=== PATIENT | female | born 1975 | race Caucasian/White ===

== ENCOUNTER 2022-07-17 16:23 | Outpatient (CLI) | payer OTHER, SELFPAY ==
[2022-07-17 18:50] LABS: Basophils Absolute Auto 0.1 K/mm3 (0.0-0.1); Basophils Percent Auto 0.7 % (0.2-1.2); Eosinophils Absolute Auto 0.2 K/mm3 (0-0.3); Eosinophils Percent Auto 1.3 % (0-4.4); Hemoglobin 17.5 g/dL (12.0-15.0); Immature Granulocyte Absolute 0.05 K/mm3 (0.00-0.031); Immature Granulocyte Percent A 0.3 % (0-0.5); Lymphocytes Absolute Auto 3.74 K/mm3 (0.9-3.2); Lymphocytes Percent Auto 24.1 % (18.3-44.2); Mean Corpuscular Hemoglobin 30.2 pg (26-34); Mean Corpuscular Volume 91.4 fl (80-100); Mean Platelet Volume 9.8 fl (7.4-10.4); Monocytes Percent Auto 6.6 % (2.6-8.5); Neutrophils Absolute Auto 10.4 K/mm3 (1.3-6.7); Platelet Count Result 324 k/mm3 (150-375); Red Cell Distribution Width 12.9 % (11.5-14.5); White Blood Count 15.5 K/mm3 (4.5-10.0)
[2022-07-17 18:59] LABS: Alanine Aminotransferase 28 U/L (6-35); Albumin Level 4.7 g/dL (3.5-5.1); Alkaline Phosphatase 70 U/L (38-126); Anion Gap 8 mmol/L (8-16); Aspartate Amino Transferase 37 U/L (14-36); Bilirubin,Total 0.3 mg/dL (0.2-1.3); Blood Urea Nitrogen 10 mg/dL (7-17); Calcium 9.5 mg/dL (8.4-10.2); Carbon Dioxide 34 mmol/L (22-30); Chloride 96 mmol/L (98-107); Cholesterol 141 mg/dL (0-200); Creatine Kinase 36 U/L (30-135); Estimated Glomerular Filt Rate > 60; Glucose 156 mg/dL (65-110); HDL Direct 55 mg/dL; Potassium 4.4 mmol/L (3.4-5.0); Sodium 138 mmol/L (137-145); Triglycerides 215 mg/dL (<150)
[2022-07-17 19:04] LABS: LDL Cholesterol Direct 49 mg/dL
[2022-07-17 19:22] LABS: Hemoglobin A1C 6.8 % (<5.7)
[2022-07-17 19:25] LABS: Creatinine Urine 34.2 mg/dL; MALB Creatinine Ratio 216.4 mg/g (0-30)
== END 2022-07-17 16:24 | disposition home or self-care (01) ==
LOC: ANHGOSHLAB 16:24
PROVIDERS: PCP Internal Medicine; Visit Provider Internal Medicine
DX: M79.10 Myalgia, unspecified site (principal); E11.69 Type 2 diabetes mellitus with other specified complication; E66.9 Obesity, unspecified
CPT/HCPCS: 36415; 80053; 80061; 82043; 82550; 83036; 84443; 85025

== ENCOUNTER 2022-08-03 09:43 | Outpatient (CLI) | payer OTHER, SELFPAY ==
[2022-08-06 11:16] LABS: Erythropoietin (EPO) 4.9 mIU/mL (2.6-18.5)
[2022-08-08 14:36] LABS: CALR Exon 9 Mutation Not Detected (Not Detected); CSF3R Exon 14/17 Mutation Not Detected (Not Detected); Clinical Indication Not Provided; JAK2 Exon 12 Mutation Not Detected (Not Detected); JAK2 V617F Mutation Not Detected (Not Detected); MPL Exon 10 Mutation Not Detected (Not Detected); Specimen Source Blood
== END 2022-08-03 09:44 | disposition home or self-care (01) ==
LOC: ANHGOSHLAB 09:44
PROVIDERS: PCP Internal Medicine; Visit Provider Internal Medicine
DX: M79.10 Myalgia, unspecified site (principal); R20.2 Paresthesia of skin; D75.1 Secondary polycythemia
CPT/HCPCS: 36415; 81219; 81270; 81402; 81403; 81479; 82668; 82728

== ENCOUNTER → 2022-08-03 09:56 | Outpatient (CLI) | payer OTHER, SELFPAY ==
--- NOTE | ~2022-08-03 | XR_ITS ---
EXAMINATION: XR chest 2V DATE: 08/03/2022 10:31 INDICATION: Other specified symptoms and signs. TECHNIQUE: Frontal and lateral views of the chest were obtained on 3 radiographs. COMPARISON: CT abdomen and pelvis 03/21/2016, chest 2 views 07/09/2015 FINDINGS: There is no pneumonia, pleural effusion, or pneumothorax. The heart size is normal. There a re changes of anterior fusion procedure in cervical spine. IMPRESSION: 1. No acute cardiopulmonary disease. Reviewed, dictated and finalized at location A.
== END ==
PROVIDERS: PCP Internal Medicine; Visit Provider Internal Medicine
DX: R06.00 Dyspnea, unspecified (principal); R09.89 Other specified symptoms and signs involving the circulatory and respiratory systems
CPT/HCPCS: 71046

== ENCOUNTER 2022-08-24 08:08 | Outpatient (CLI) | payer OTHER, SELFPAY ==
--- NOTE | 2022-08-24 15:09 | WPDPFTINT ---
PFT Procedure Performed PFT Procedure Performed Plethysmography (Lung Vol) Diffusing Cap (DLCO) Flow Vol Loop Spirometry w/o Bronchodil PFT Interpretation This is a pulmonary function test with spirometry, plethysmography and diffusing capacity. The test was performed and results interpreted in accordance with the 2019 and 2005 ATS/ERS Task Force guidelines respectively using the Global Lung Function Initiative-2012 reference equations. Patient demonstrated good effort and cooperation. Reproducibility criteria were met. The quality of the spirometry maneuver was Grade A. Findings: Spirometry: There is decreased maximal expiratory airflow at all lung volumes with a concave expiratory flow tracing. The contour the inspiratory flow tracing is normal. The FVC is 2.41 L, 62% predicted. The FEV1 is 1.46 L, 46% predicted. The FEV1: FVC ratio 61%. Plethysmography: The total lung capacity is 5.28 L, 96% predicted. The functional residual capacity is 3.51 L, 114% predicted. The residual volume is 2.86 L, 153% predicted. Diffusion capacity: The diffusing capacity unadjusted for hemoglobin and carboxyhemoglobin is 18.8, 78% predicted. The diffusing capacity adjusted for alveolar volume is 5.36, 119% predicted. Impression: There is a severe obstructive abnormality. The increase in residual volume is consistent with air trapping from an obstructive abnormality. The diffusing capacity is normal. There are no prior studies for comparison
== END 2022-08-24 08:09 | disposition home or self-care (01) ==
LOC: ANHPFT 08:10
PROVIDERS: PCP Internal Medicine; Visit Provider Internal Medicine
DX: R09.89 Other specified symptoms and signs involving the circulatory and respiratory systems (principal); R06.00 Dyspnea, unspecified; R94.2 Abnormal results of pulmonary function studies
CPT/HCPCS: 94375; 94726; 94729

== ENCOUNTER 2022-10-03 08:45 | Outpatient (CLI) | payer OTHER, SELFPAY ==
--- NOTE | ~2022-10-03 | US_ITS ---
EXAMINATION: US arterial ankle brachial ind DATE: 10/03/2022 10:09 INDICATION: Bilateral lower limb pain and paresthesias, left greater than right. TECHNIQUE: Segmental pressures and plethysmographic and Doppler waveforms of the brachial and lower e xtremity arteries were obtained. COMPARISON: None. FINDINGS: Right and left brachial artery pressures of 151 mm Hg and 158 mm Hg, respectively, are concordant (no rmal difference <= 30 mmHg). The right ankle-brachial index (SOLOMON) is 1.08 (normal >= 0.9-1.0). The right great toe-brachial index (TBI) is 1.01 (normal >= 0.65). Arterial Doppler waveforms biphasic with brisk systolic upstrokes at both right posterior tibial and dorsalis pedis arteries. The left SOLOMON is 1.09. The left TBI is 0.96. Arterial Doppler waveforms are biphasic with brisk systol ic upstrokes at both left posterior tibial and dorsalis pedis arteries. IMPRESSION: 1. No significant arterial occlusive disease with normal bilateral ABIs and TBIs. Reviewed, dictated and finalized at location A. [employer] SERVICES MANAGER IMPRESSION: 1. No significant arterial occlusive disease with normal bilateral ABIs and TBI s.
--- NOTE | 2022-10-03 11:00 | NEURO_ITS ---
Impression: # History of lower extremity pain. # Normal nerve conduction study. # Normal needle/EMG exam. # Clinical correlation recommended. Motor Nerve Conduction Lower Extremities Peroneal Nerve Conduction Velocity (m/sec) Terminal Latency (msec) Response Voltage(mV) Popliteal space-Ankle Ankle Extensor Dig Brevis Popliteal space Ankle Right 45-42 3.9 3-2 3 Left 42-44 4.2 2-2 3 Tibial Nerve Conduction Velocity (m/sec) Terminal Latency (msec) Response Voltage(mV) Popliteal space-Ankle Ankle-Extensor Dig Brevis Popliteal space Ankle Right 43 4.0 6 8 Left 40 4.1 6 7 F-waves Peroneal Nerve (ms) Tibial Nerve (ms) Right 48.7 49.2 Left 49.3 48.7 Sensory Nerve Conduction Lower Extremities Sural Nerve Stimulation Terminal Latency (msec) Ankle Response Voltage (uV) Ankle Response Velocity (m/sec) Right 3.9 20 41 Left 3.9 28 41 Superficial Peroneal Nerve Stimulation Terminal Latency (msec) Ankle Response Voltage (uV) Ankle Response Velocity (m/sec) Right 3.9 7 41 Left 3.7 5 43 Left Right Muscles Examined Fibrillation Fasciculation Scarcity Voltage Duration Left Right Left Right Left Right Left Right Left Right X X Ant Tibialis X X Gastroc X X Fibularis Long X X Flex Dig Long X X Ext Dig Brev Abd Hallucis Quadriceps Paraspinals MTDD
== END 2022-10-03 08:46 | disposition home or self-care (01) ==
PROVIDERS: PCP Internal Medicine; Visit Provider Internal Medicine
DX: R20.2 Paresthesia of skin (principal); M79.10 Myalgia, unspecified site; E11.69 Type 2 diabetes mellitus with other specified complication; E66.9 Obesity, unspecified
CPT/HCPCS: 93922; 95886; 95910

== ENCOUNTER 2022-10-10 17:02 | Emergency (ER) | payer OTHER, SELFPAY ==
[2022-10-10 17:30] VITALS: BP 149/82; PULSE 97; RESP 16; TEMP 36.3; O2SAT 93
--- NOTE | 2022-10-10 18:15 | PC.NURSE ---
pt previously informed staff she could not wait to be seen tonnano. aware there are 5 people
--- NOTE | 2022-10-10 18:24 | PC.NURSE ---
Pt previously informed staff she did not want to wait to be seen, aware there were 5 patients to be seen in front of her. nurse observed walking in [place] in no apparent distress.
== END 2022-10-10 17:35 | disposition left against medical advice (07) ==
PROVIDERS: Emergency Provider Registered Nurse; PCP Internal Medicine
DX: Z53.21 Procedure and treatment not carried out due to patient leaving prior to being seen by health care provider (principal)
CPT/HCPCS: 99199

== ENCOUNTER 2022-10-11 16:11 | Emergency (ER) | payer OTHER, SELFPAY ==
[2022-10-11 16:32] VITALS: BP 136/79; PULSE 91; RESP 16; TEMP 36.3; O2SAT 92
--- NOTE | 2022-10-11 16:44 | ED.URI ---
HPI - URI/Sore Throat General Chief Complaint: Upper Respiratory Infection Stated Complaint: runny nose chest congestion throat Time Seen by Provider: 10/11/22 16:44 Source: patient Mode of arrival: ambulatory Limitations: no limitations History of Present Illness HPI Narrative: 47-year-old female presenting for complaint of cough, upper chest discomfort and Shortness of breath. Onset one week. Coughing green sputum. States she thinks she has bronchitis. Reports new pcp is testing her for lung conditions and she has had CXR and CT recently. hx DM, asthma. Using inhalers as directed. Used neb yesterday with temporary relief. Current smoker 1/2 PPD. Related Data Home Medications Medication Instructions Recorded Confirmed cholecalciferol (vitamin D3) 125 5,000 unit PO DAILY 07/17/22 10/11/22 mcg (5,000 unit) capsule multivitamin (Daily Multi-Vitamin 1 tablet PO DAILY 07/17/22 10/11/22 tablet) Allergies Allergy/AdvReac Type Severity Reaction Status Date / Time sulfamethoxazole Allergy Intermediate Hives Verified 10/11/22 16:44 [From ] trimethoprim [From ] Allergy Intermediate Hives Verified 10/11/22 16:44 codeine Allergy Unknown Unknown Verified 10/11/22 16:44 Review of Systems Review of Systems: CONSTITUTIONAL: Denies body aches, fever, chills, or sweats. EYES: Denies visual changes, redness, or discharge. ENT: Denies rhinorrhea, congestion, sore throat, or otalgia. CARDIOVASCULAR: Denies chest pain, palpitations, or edema. RESPIRATORY: Reports cough, sob, wheezing. GASTROINTESTINAL: Denies abdominal pain, nausea, vomiting, or diarrhea. MUSCULOSKELETAL: Denies back pain, joint pain, or myalgia. NEUROLOGIC: Denies headache, numbness, tingling, or weakness. All systems reviewed & are unremarkable except as noted in HPI and below PMFSH Past Medical History Medical History Anxiety Asthma Chronic neck pain Diabetes mellitus type 2 in obese Hyperlipemia Hypertension Family History Family History Mother Alcoholism Diabetes mellitus Depression Anxiety Father Asthma Daughter Asthma Anxiety Depression Grandparent Cancer Son Anxiety Depression Sibling Anxiety Depression Other Family history of alcoholism Hypertension Social History Social History Smoking status: Current every day smoker Tobacco type: cigarettes Additional smoking assessment comments: 1-2 packs a day Alcohol intake: current Alcohol use details: few times a month. beer mostly but occasionally a mixed drink Substance use type: unknown Gender identity (if verbalized by the patient): Male Agree to blood products: Yes Comments At time of signature, I have reviewed and agree with nursing past medical, surgical, social and family history unless otherwise noted. Please see nursing chart for further information. There is no relevant family history pertinent to the presenting complaint Exam Narrative: GENERAL: Well-appearing, in no acute distress. EYES: EOMI. No redness or drainage. Conjunctivae normal. ENT: Mucous membranes pink and moist. No rhinorrhea. TMs normal bilaterally. Throat normal. Uvula midline. NECK: Normal AROM. Supple. CHEST: No respiratory distress. Unlabored. Diminished and Wheezing to all wong. HEART: Regular rate and rhythm. No murmur appreciated. SKIN: Warm, dry, no rash. Capillary refill normal. Normal skin turgor. NEURO: Alert and oriented x3. PSYCH: Normal affect. Course Course Emergency Course: Patient is aware of diagnosis, understands and agrees to treatment plan. Anticipatory guidance given. Patient agrees to follow-up as directed and is aware of reasons to seek care at the emergency department. Portions of this record may have been created with voice recognition s
[2022-10-11] MEDS: IPRATROPIUM BR 0.02% INH SOLN 0.5 MG/2.5 ML VIAL INHALATION (16:58)
[2022-10-11] MEDS: ALBUTEROL SULFATE NEB 2.5 MG/3 ML INH INHALATION (16:59)
[2022-10-11 17:10] VITALS: O2SAT 96
== END 2022-10-11 17:55 | disposition home or self-care (01) ==
PROVIDERS: Emergency Provider Nurse Practitioner Family; PCP Internal Medicine
DX: J40 Bronchitis, not specified as acute or chronic (principal); E11.9 Type 2 diabetes mellitus without complications; E78.5 Hyperlipidemia, unspecified; I10 Essential (primary) hypertension; F17.210 Nicotine dependence, cigarettes, uncomplicated; J45.909 Unspecified asthma, uncomplicated
CPT/HCPCS: 94640; 99213; G0463

== ENCOUNTER 2023-02-22 11:21 | Outpatient (CLI) | payer OTHER, SELFPAY ==
[2023-02-22 18:39] LABS: Appearance Urine Clear (Clear); Bilirubin Urine Negative (Negative); Blood Urine Negative (Negative); Color Urine Yellow (Yellow); Glucose Urine UA 2+ mg/dL (Negative); Ketones Urine Negative (Negative); Leukocyte Esterase Ur Negative LEU/UL (NEGATIVE); Nitrate Urine Negative (Negative); Protein Urine 2+ mg/dL (Negative); Specific Grav Ur 1.015 (1.001-1.035); Urobilinogen Urine 0.2 mg/dL (<2.0)
[2023-02-22 18:42] LABS: Basophils Absolute Auto 0.1 K/mm3 (0.0-0.1); Basophils Percent Auto 0.8 % (0.2-1.2); Eosinophils Absolute Auto 0.2 K/mm3 (0-0.3); Eosinophils Percent Auto 1.2 % (0-4.4); Hemoglobin 16.7 g/dL (12.0-15.0); Immature Granulocyte Absolute 0.04 K/mm3 (0.00-0.031); Immature Granulocyte Percent A 0.3 % (0-0.5); Lymphocytes Absolute Auto 3.18 K/mm3 (0.9-3.2); Lymphocytes Percent Auto 20.6 % (18.3-44.2); Mean Corpuscular HGB Conc 32.7 g/dl (32-36); Mean Corpuscular Volume 91.6 fl (80-100); Mean Platelet Volume 9.7 fl (7.4-10.4); Monocytes Absolute Auto 1.4 K/mm3 (0.1-0.6); Monocytes Percent Auto 8.8 % (2.6-8.5); Neutrophils Absolute Auto 10.5 K/mm3 (1.3-6.7); Neutrophils Percent Auto 68.3 % (45.5-73.1); Platelet Count Result 306 k/mm3 (150-375); Red Blood Count 5.57 M/mm3 (4.2-5.4); Red Cell Distribution Width 12.8 % (11.5-14.5); White Blood Count 15.4 K/mm3 (4.5-10.0)
[2023-02-22 18:53] LABS: Add Urine Microscopic? YES; RBC Urine 0-2 /hpf (0-2); WBC Urine 0-5 /hpf (0-3)
[2023-02-22 18:54] LABS: Bacteria Urine None seen /hpf; Squamous Epithelial Cell Urine None seen /hpf (Few)
[2023-02-22 18:55] LABS: Non Pathogenic Casts 0-2
[2023-02-22 18:57] LABS: Alanine Aminotransferase 23 U/L (6-35); Albumin Level 4.6 g/dL (3.5-5.1); Alkaline Phosphatase 62 U/L (38-126); Anion Gap 13 mmol/L (8-16); Aspartate Amino Transferase 19 U/L (14-36); Bilirubin,Total 0.4 mg/dL (0.2-1.3); Blood Urea Nitrogen 9 mg/dL (7-17); Calcium 9.1 mg/dL (8.4-10.2); Carbon Dioxide 23 mmol/L (22-30); Chloride 96 mmol/L (98-107); Estimated Glomerular Filt Rate > 60; Glucose 138 mg/dL (65-110); Potassium 3.7 mmol/L (3.4-5.0); Sodium 132 mmol/L (137-145)
[2023-02-22 20:07] LABS: Hemoglobin A1C 7.1 % (<5.7)
== END 2023-02-22 11:22 | disposition home or self-care (01) ==
LOC: ANHGOSHLAB 11:23
PROVIDERS: PCP Internal Medicine; Visit Provider Nurse Practitioner
DX: E11.69 Type 2 diabetes mellitus with other specified complication (principal); E66.9 Obesity, unspecified; N39.0 Urinary tract infection, site not specified; R30.0 Dysuria
CPT/HCPCS: 36415; 80053; 81001; 83036; 85025; 87086

== ENCOUNTER 2023-08-19 09:55 | Outpatient (CLI) | payer OTHER, SELFPAY ==
[2023-08-19 18:37] LABS: Alanine Aminotransferase 26 U/L (6-35); Albumin Level 4.5 g/dL (3.5-5.1); Alkaline Phosphatase 54 U/L (38-126); Anion Gap 4 mmol/L (8-16); Aspartate Amino Transferase 26 U/L (14-36); Bilirubin,Total 0.4 mg/dL (0.2-1.3); Blood Urea Nitrogen 9 mg/dL (7-17); CRP < 0.5 mg/dL (<1.0); Calcium 9.1 mg/dL (8.4-10.2); Carbon Dioxide 31 mmol/L (22-30); Chloride 99 mmol/L (98-107); Cholesterol 136 mg/dL (0-200); Estimated Glomerular Filt Rate > 60; Glucose 157 mg/dL (65-110); HDL Direct 48 mg/dL; Potassium 4.3 mmol/L (3.4-5.0); Sodium 134 mmol/L (137-145); Triglycerides 265 mg/dL (<150)
[2023-08-19 18:47] LABS: LDL Cholesterol Direct 65 mg/dL
[2023-08-19 19:42] LABS: Basophils Absolute Auto 0.1 K/mm3 (0.0-0.1); Basophils Percent Auto 0.7 % (0.2-1.2); Eosinophils Absolute Auto 0.1 K/mm3 (0-0.3); Eosinophils Percent Auto 0.7 % (0-4.4); Hematocrit 51.6 % (37.0-47.0); Hemoglobin 16.9 g/dL (12.0-15.0); Hemoglobin A1C 7.1 % (<5.7); Immature Granulocyte Absolute 0.03 K/mm3 (0.00-0.031); Immature Granulocyte Percent A 0.2 % (0-0.5); Lymphocytes Absolute Auto 2.48 K/mm3 (0.9-3.2); Lymphocytes Percent Auto 20.3 % (18.3-44.2); Mean Corpuscular HGB Conc 32.8 g/dl (32-36); Mean Corpuscular Hemoglobin 30.6 pg (26-34); Mean Corpuscular Volume 93.3 fl (80-100); Mean Platelet Volume 10.1 fl (7.4-10.4); Monocytes Absolute Auto 0.8 K/mm3 (0.1-0.6); Monocytes Percent Auto 6.5 % (2.6-8.5); Neutrophils Absolute Auto 8.8 K/mm3 (1.3-6.7); Neutrophils Percent Auto 71.6 % (45.5-73.1); Platelet Count Result 359 k/mm3 (150-375); Red Blood Count 5.53 M/mm3 (4.2-5.4); Red Cell Distribution Width 12.6 % (11.5-14.5); White Blood Count 12.2 K/mm3 (4.5-10.0)
[2023-08-19 20:08] LABS: Erythrocyte Sedimentation Rate 4 mm/hr (0-20)
== END 2023-08-19 09:56 | disposition home or self-care (01) ==
LOC: ANHGOSHLAB 09:57
PROVIDERS: PCP Internal Medicine; Visit Provider Internal Medicine
DX: E11.69 Type 2 diabetes mellitus with other specified complication (principal); E66.9 Obesity, unspecified; D75.1 Secondary polycythemia; M79.10 Myalgia, unspecified site
CPT/HCPCS: 36415; 80053; 80061; 83036; 85025; 85652; 86140

== ENCOUNTER 2024-04-10 11:13 | Outpatient (CLI) | payer OTHER, SELFPAY ==
[2024-04-10 18:50] LABS: Basophils Absolute Auto 0.2 K/mm3 (0.0-0.1); Basophils Percent Auto 1.1 % (0.2-1.2); Eosinophils Absolute Auto 0.8 K/mm3 (0-0.3); Hematocrit 49.3 % (37.0-47.0); Hemoglobin 16.3 g/dL (12.0-15.0); Immature Granulocyte Absolute 0.07 K/mm3 (0.00-0.031); Immature Granulocyte Percent A 0.4 % (0-0.5); Lymphocytes Absolute Auto 3.41 K/mm3 (0.9-3.2); Lymphocytes Percent Auto 20.6 % (18.3-44.2); Mean Corpuscular HGB Conc 33.1 g/dl (32-36); Mean Corpuscular Hemoglobin 29.8 pg (26-34); Mean Corpuscular Volume 90.1 fl (80-100); Mean Platelet Volume 9.9 fl (7.4-10.4); Monocytes Absolute Auto 1.2 K/mm3 (0.1-0.6); Neutrophils Absolute Auto 10.9 K/mm3 (1.3-6.7); Neutrophils Percent Auto 65.9 % (45.5-73.1); Platelet Count Result 294 k/mm3 (150-375); Red Blood Count 5.47 M/mm3 (4.2-5.4); Red Cell Distribution Width 13.1 % (11.5-14.5); White Blood Count 16.6 K/mm3 (4.5-10.0)
[2024-04-10 19:22] LABS: Alanine Aminotransferase 22 U/L (6-35); Albumin Level 4.4 g/dL (3.5-5.1); Alkaline Phosphatase 63 U/L (38-126); Anion Gap 6 mmol/L (4-12); Aspartate Amino Transferase 44 U/L (14-36); Bilirubin,Total 0.5 mg/dL (0.2-1.3); Blood Urea Nitrogen 10 mg/dL (7-17); Calcium 9.3 mg/dL (8.4-10.2); Carbon Dioxide 31 mmol/L (22-30); Chloride 99 mmol/L (98-107); Creatine Kinase 39 U/L (30-135); Estimated Glomerular Filt Rate > 60; Glucose 98 mg/dL (65-110); Magnesium 1.8 mg/dL (1.6-2.3); Potassium 4.4 mmol/L (3.4-5.0); Sodium 136 mmol/L (137-145)
[2024-04-10 19:59] LABS: Hemoglobin A1C 6.9 % (<5.7)
== END 2024-04-10 11:14 | disposition home or self-care (01) ==
LOC: ANHGOSHLAB 11:16
PROVIDERS: PCP Internal Medicine; Visit Provider Internal Medicine
DX: E87.1 Hypo-osmolality and hyponatremia (principal); M79.10 Myalgia, unspecified site; D75.1 Secondary polycythemia; E11.69 Type 2 diabetes mellitus with other specified complication; E66.9 Obesity, unspecified
CPT/HCPCS: 36415; 80053; 82550; 82728; 83036; 83735; 85025

== ENCOUNTER 2024-05-01 11:15 | Outpatient (CLI) | payer OTHER, SELFPAY ==
[2024-05-01 11:35] LABS: Basophils Absolute Auto 0.1 K/mm3 (0.0-0.1); Basophils Percent Auto 0.7 % (0.2-1.2); Eosinophils Absolute Auto 0.1 K/mm3 (0-0.3); Eosinophils Percent Auto 1.2 % (0-4.4); Hemoglobin 15.7 g/dL (12.0-15.0); Immature Granulocyte Absolute 0.03 K/mm3 (0.00-0.031); Immature Granulocyte Percent A 0.3 % (0-0.5); Lymphocytes Absolute Auto 2.55 K/mm3 (0.9-3.2); Lymphocytes Percent Auto 23.7 % (18.3-44.2); Mean Corpuscular HGB Conc 33.4 g/dl (32-36); Mean Corpuscular Hemoglobin 30.3 pg (26-34); Mean Corpuscular Volume 90.6 fl (80-100); Mean Platelet Volume 9.3 fl (7.4-10.4); Monocytes Absolute Auto 0.9 K/mm3 (0.1-0.6); Monocytes Percent Auto 8.1 % (2.6-8.5); Neutrophils Absolute Auto 7.1 K/mm3 (1.3-6.7); Platelet Count Result 297 k/mm3 (150-375); Red Blood Count 5.19 M/mm3 (4.2-5.4); Red Cell Distribution Width 13.1 % (11.5-14.5); White Blood Count 10.8 K/mm3 (4.5-10.0)
[2024-05-01 12:38] LABS: Iron 69 ug/dL (37-170)
[2024-05-01 12:40] LABS: Appearance Urine Clear (Clear); Bacteria Urine None Seen /hpf; Bilirubin Urine Negative (Negative); Blood Urine Negative (Negative); Color Urine Yellow (Yellow); Glucose Urine UA Negative (Negative); Ketones Urine Negative (Negative); Leukocyte Esterase Ur Trace LEU/UL (Negative); Nitrate Urine Negative (Negative); Non Pathogenic Casts 0-2; Protein Urine Negative (Negative); RBC Urine 0-2 /hpf (0-2); Specific Grav Ur 1.008 (1.001-1.035); Squamous Epithelial Cell Urine None Seen /hpf (Few); Urobilinogen Urine 0.2 mg/dL (<2.0); WBC Urine 0-5 /hpf (0-3); pH Urine 6.5 (5.0-9.0)
[2024-05-01 12:43] LABS: Alanine Aminotransferase 26 U/L (6-35); Albumin Level 4.4 g/dL (3.5-5.1); Alkaline Phosphatase 56 U/L (38-126); Anion Gap 5 mmol/L (4-12); Aspartate Amino Transferase 21 U/L (14-36); Bilirubin,Total 0.4 mg/dL (0.2-1.3); Blood Urea Nitrogen 12 mg/dL (7-17); CRP < 0.5 mg/dL (<1.0); Calcium 9.2 mg/dL (8.4-10.2); Carbon Dioxide 31 mmol/L (22-30); Chloride 100 mmol/L (98-107); Estimated Glomerular Filt Rate > 60; Glucose 180 mg/dL (65-110); Potassium 4.3 mmol/L (3.4-5.0); Sodium 136 mmol/L (137-145)
[2024-05-01 12:47] LABS: Percent Iron Saturation 19 % (20-50)
[2024-05-01 12:58] LABS: Erythrocyte Sedimentation Rate 1 mm/hr (0-20)
[2024-05-01 13:02] LABS: Add Urine Microscopic? YES
== END 2024-05-01 11:16 | disposition home or self-care (01) ==
LOC: ANHLAB 11:17
PROVIDERS: Nurse Practitioner Family; PCP Internal Medicine; Visit Provider Internal Medicine Hematology & Oncology
DX: D72.829 Elevated white blood cell count, unspecified (principal); D75.1 Secondary polycythemia; D64.9 Anemia, unspecified
CPT/HCPCS: 36415; 80053; 81001; 82668; 83540; 83550; 85025; 85652; 86140; 87086; 87088

== ENCOUNTER 2024-05-22 08:21 | Outpatient (CLI) | payer OTHER, SELFPAY ==
[2024-06-08 11:09] VITALS: BMI 29.0
--- NOTE | 2024-06-08 11:09 | WPDHOMESLEEP ---
Sleep Study - Home Unattended Date of Study: 05/22/24 Ordering Provider: Konstantin Hoover DO Interpreting Provider: Dunia Sosa DO Home Sleep Study Type: Watch PAT Height: 1.7 m Weight: 83.915 kg Body Mass Index: 29.0 Neck Circumference (inches): 16 [place]: 2 Reason for Sleep Study Snoring Sleep History The patient is a 49 year old female with anxiety, asthma, hypertension, hyperlipidemia, Type 2 diabetes and chronic neck pain that had a sleep study ordered by her primary care physician for evaluation of sleep apnea. The sleep questionnaire was unavailable. [facility] Past Medical History Medical History Anxiety Asthma Chronic neck pain Diabetes mellitus type 2 in obese Hyperlipemia Hypertension Family History Family History Mother Alcoholism Diabetes mellitus Depression Anxiety Father Asthma Daughter Asthma Anxiety Depression Grandparent Cancer Son Anxiety Depression Sibling Anxiety Depression Other Family history of alcoholism Hypertension Social History Social History Smoking status: Current every day smoker Tobacco type: cigarettes Additional smoking assessment comments: 1-2 packs a day Alcohol intake: current Alcohol use details: few times a month. beer mostly but occasionally a mixed drink Substance use type: unknown Do You Feel Safe in your Home?: Yes Lack of Transportation: No Lack of Food: Never True Current Housing: I Have Housing Concerned About Future Housing: No Difficulty Paying Gas/Electric Bills: No Difficulty Paying for Meds: No Currently Unemployed: No Education: High School Diploma/GED Difficulty w/ Childcare or Family Care: No Living arrangements: with family Gender identity (if verbalized by the patient): Male Agree to blood products: Yes Medications Home Medications Medication Instructions Recorded Confirmed Type cholecalciferol (vitamin D3) 125 5,000 unit PO DAILY 07/17/22 04/14/24 History mcg (5,000 unit) capsule multivitamin (Daily Multi-Vitamin 1 tablet PO DAILY 07/17/22 04/14/24 History tablet) metformin 500 mg tablet,extended 1,500 mg PO DAILY #360 tabs 08/19/23 04/14/24 Rx release 24 hr albuterol sulfate 90 mcg/actuation 2 puff inhalation Q4H PRN 01/01/24 04/14/24 Rx aerosol inhaler shortness of breath or wheezing #8.5 grams budesonide 160 mcg-glycopyr 9 2 inh inhalation BID #10.7 grams 04/14/24 04/14/24 Rx mcg-formot 4.8 mcg/actuation HFA inhaler (Breztri Aerosphere) pregabalin 75 mg capsule (Lyrica) 75 mg PO BID #60 caps 04/14/24 04/14/24 Rx citalopram 40 mg tablet 40 mg PO DAILY #90 tabs 05/05/24 Rx hydrocodone 10 mg-acetaminophen 1 tablet PO Q12H PRN pain #60 tabs 05/06/24 Rx 325 mg tablet lisinopril 20 mg tablet 20 mg PO DAILY #90 tabs 06/02/24 Rx rosuvastatin 5 mg tablet 5 mg PO DAILY #90 tabs 06/02/24 Rx dulaglutide 1.5 mg/0.5 mL See Rx Instructions .Route 06/08/24 Rx subcutaneous pen injector .COMPLEX #2 mL (Trulicity) Sleep Procedure The sleep study was completed using VidaveeT a technically adequate device with seven channels: peripheral arterial tone, actigraphy, body position, snore, respiratory movement, pulse oximetry, sleep staging, and heart rate. Prior to using the device, the patient received verbal and written instructions for its application and was provided with the help desk phone number for additional telephonic instruction with 24-hour availability of qualified personnel to answer questions. The study was scored using CMS guidelines. Sleep Architecture The total recording time is 6 hrs, 13 min. The total sleep time is 5 hrs, 44 min. Sleep latency is 22 minutes. REM latency is 94 minutes. The patient had 2 episodes of waking. Sleep architecture shows 30.2% deep sl
== END 2024-05-25 08:46 | disposition home or self-care (01) ==
LOC: ANHCSM 08:21
PROVIDERS: PCP Internal Medicine; Visit Provider Internal Medicine
DX: G47.33 Obstructive sleep apnea (adult) (pediatric) (principal); G47.34 Idiopathic sleep related nonobstructive alveolar hypoventilation; D75.1 Secondary polycythemia; G47.19 Other hypersomnia
CPT/HCPCS: 95800

== ENCOUNTER 2024-05-25 09:49 | Emergency (ER) | payer OTHER, SELFPAY ==
[2024-05-25] VITALS (15 sets, daily range): BP systolic 132–158; BP diastolic 70–92; PULSE 80–98; RESP 12–24; TEMP 36.5–36.6; O2SAT 90–94
[2024-05-25 11:02] LABS: Basophils Absolute Auto 0.1 K/mm3 (0.0-0.1); Basophils Percent Auto 0.6 % (0.2-1.2); Eosinophils Absolute Auto 0.2 K/mm3 (0-0.3); Eosinophils Percent Auto 1.4 % (0-4.4); Hematocrit 45.8 % (37.0-47.0); Hemoglobin 15.5 g/dL (12.0-15.0); Immature Granulocyte Absolute 0.05 K/mm3 (0.00-0.031); Immature Granulocyte Percent A 0.4 % (0-0.5); Lymphocytes Absolute Auto 2.27 K/mm3 (0.9-3.2); Lymphocytes Percent Auto 17.9 % (18.3-44.2); Mean Corpuscular HGB Conc 33.8 g/dl (32-36); Mean Corpuscular Volume 91.6 fl (80-100); Mean Platelet Volume 9.6 fl (7.4-10.4); Monocytes Absolute Auto 0.6 K/mm3 (0.1-0.6); Monocytes Percent Auto 4.5 % (2.6-8.5); Neutrophils Absolute Auto 9.5 K/mm3 (1.3-6.7); Neutrophils Percent Auto 75.2 % (45.5-73.1); Platelet Count Result 241 k/mm3 (150-375); Red Cell Distribution Width 13.3 % (11.5-14.5); White Blood Count 12.7 K/mm3 (4.5-10.0)
[2024-05-25 11:06] LABS: Appearance Urine Clear (Clear); Bacteria Urine None Seen /hpf; Bilirubin Urine Negative (Negative); Blood Urine 2+ (Negative); Color Urine Yellow (Yellow); Glucose Urine UA Negative (Negative); Ketones Urine Negative (Negative); Leukocyte Esterase Ur Negative LEU/UL (Negative); Nitrate Urine Negative (Negative); Non Pathogenic Casts 0-2; Protein Urine Negative (Negative); RBC Urine 21-50 /hpf (0-2); Specific Grav Ur 1.007 (1.001-1.035); Squamous Epithelial Cell Urine None Seen /hpf (Few); Urobilinogen Urine 0.2 mg/dL (<2.0); WBC Urine 0-5 /hpf (0-3); pH Urine 5.5 (5.0-9.0)
[2024-05-25 11:08] LABS: Add Urine Microscopic? YES
--- NOTE | 2024-05-25 11:12 | PC.NURSE ---
assumed care of pt from moises rankin. informed pt we are waiting on blood work to result. pt has no concerns at this time
[2024-05-25 11:19] LABS: Alanine Aminotransferase 18 U/L (6-35); Albumin Level 4.3 g/dL (3.5-5.1); Alkaline Phosphatase 50 U/L (38-126); Anion Gap 11 mmol/L (4-12); Aspartate Amino Transferase 24 U/L (14-36); Bilirubin,Total 0.4 mg/dL (0.2-1.3); Blood Urea Nitrogen 10 mg/dL (7-17); Calcium 9.4 mg/dL (8.4-10.2); Carbon Dioxide 24 mmol/L (22-30); Chloride 102 mmol/L (98-107); Estimated CRCL calculation 127 ml/min; Estimated Glomerular Filt Rate > 60; Glucose 176 mg/dL (65-110); Potassium 4.2 mmol/L (3.4-5.0); Sodium 137 mmol/L (137-145)
--- NOTE | 2024-05-25 12:14 | ED.FEMALEGU ---
HPI - Female Genitourinary General Chief complaint: Vaginal Bleeding Stated complaint: vaginal bleeding Time Seen by Provider: 05/25/24 10:39 Source: patient Mode of arrival: ambulatory Limitations: no limitations History of Present Illness HPI Narrative: Patient is a 49-year-old female who presents the ED with report of abnormal vaginal bleeding. Patient reports she is premenopausal and has not had a menstrual cycle in approximately 8 months. She began having spotting last night, which developed into more heavy bleeding throughout the night. She notes this morning she has been bleeding through pads and tampons every hour. Has noticed several clots. Reports lower abdominal cramping. Called OBGYN and was referred here for further evaluation. Denies N/V/D, dysuria, fevers. Related Data Home Medications Medication Instructions Recorded Confirmed cholecalciferol (vitamin D3) 125 5,000 unit PO DAILY 07/17/22 04/14/24 mcg (5,000 unit) capsule multivitamin (Daily Multi-Vitamin 1 tablet PO DAILY 07/17/22 04/14/24 tablet) Allergies Allergy/AdvReac Type Severity Reaction Status Date / Time Sulfa (Sulfonamide Allergy Intermediate Hives Verified 04/14/24 08:21 Antibiotics) trimethoprim [From ] Allergy Intermediate Hives Verified 04/14/24 08:21 codeine Allergy Unknown Unknown Verified 04/14/24 08:21 Review of Systems Review of Systems: CONSTITUTIONAL: Denies fever, chills, or sweats. GASTROINTESTINAL: See HPI. GENITOURINARY: See HPI. All systems reviewed & are unremarkable except as noted in HPI and below PMFSH Past Medical History Medical History Anxiety Asthma Chronic neck pain Diabetes mellitus type 2 in obese Hyperlipemia Hypertension Family History Family History Mother Alcoholism Diabetes mellitus Depression Anxiety Father Asthma Daughter Asthma Anxiety Depression Grandparent Cancer Son Anxiety Depression Sibling Anxiety Depression Other Family history of alcoholism Hypertension Social History Social History Smoking status: Current every day smoker Tobacco type: cigarettes Additional smoking assessment comments: 1-2 packs a day Alcohol intake: current Alcohol use details: few times a month. beer mostly but occasionally a mixed drink Substance use type: unknown Do You Feel Safe in your Home?: Yes Lack of Transportation: No Lack of Food: Never True Current Housing: I Have Housing Concerned About Future Housing: No Difficulty Paying Gas/Electric Bills: No Difficulty Paying for Meds: No Currently Unemployed: No Education: High School Diploma/GED Difficulty w/ Childcare or Family Care: No Living arrangements: with family Gender identity (if verbalized by the patient): Male Agree to blood products: Yes Exam Narrative: GENERAL: Well appearing, well-nourished, non-toxic, in no acute distress. HEAD: Normocephalic, atraumatic. RESPIRATORY: Airway patent, respirations nonlabored. Clear to auscultation bilaterally, no rales, rhonchi, wheezing. CARDIOVASCULAR: Regular rate and rhythm without murmurs, rubs, or gallops. ABDOMINAL: Soft, no significant tenderness throughout abdomen, nondistended. Normoactive BS. PELVIC: Normal external genitalia. Moderate amount of dark red vaginal bleeding in vaginal vault. Small clots present. Cervix appears unremarkable. No significant CMT. No evidence of hemorrhage or pooling of fluid. MUSCULOSKELETAL: Moves all extremities. No gross deformities. SKIN: Warm, dry, normal color. NEURO: A&O X3. Speech clear. Cranial nerves II-XII grossly intact. Steady gait. No ataxic movements. PSYCHIATRIC: Appropriate mood and affect. Normal interaction. Course Vital Signs Vital signs: Vital Signs Temperatur
== END 2024-05-25 13:02 | disposition home or self-care (01) ==
PROVIDERS: Emergency Provider Physician Assistant; PCP Internal Medicine
DX: N93.8 Other specified abnormal uterine and vaginal bleeding (principal); E11.9 Type 2 diabetes mellitus without complications; E78.5 Hyperlipidemia, unspecified; I10 Essential (primary) hypertension; F17.210 Nicotine dependence, cigarettes, uncomplicated
CPT/HCPCS: 36415; 80053; 81001; 81025; 85025; 86850; 86900; 86901; 99284

== ENCOUNTER 2024-08-01 11:43 | Outpatient (CLI) | payer OTHER, SELFPAY ==
[2024-08-01 12:15] LABS: Basophils Absolute Auto 0.1 K/mm3 (0.0-0.1); Basophils Percent Auto 0.7 % (0.2-1.2); Eosinophils Absolute Auto 0.1 K/mm3 (0-0.3); Eosinophils Percent Auto 0.9 % (0-4.4); Hematocrit 50.2 % (37.0-47.0); Hemoglobin 16.7 g/dL (12.0-15.0); Immature Granulocyte Absolute 0.04 K/mm3 (0.00-0.031); Immature Granulocyte Percent A 0.4 % (0-0.5); Lymphocytes Absolute Auto 2.76 K/mm3 (0.9-3.2); Lymphocytes Percent Auto 24.3 % (18.3-44.2); Mean Corpuscular HGB Conc 33.3 g/dl (32-36); Mean Corpuscular Volume 90.1 fl (80-100); Mean Platelet Volume 9.4 fl (7.4-10.4); Monocytes Absolute Auto 0.8 K/mm3 (0.1-0.6); Monocytes Percent Auto 6.8 % (2.6-8.5); Neutrophils Absolute Auto 7.6 K/mm3 (1.3-6.7); Neutrophils Percent Auto 66.9 % (45.5-73.1); Platelet Count Result 320 k/mm3 (150-375); Red Blood Count 5.57 M/mm3 (4.2-5.4); Red Cell Distribution Width 12.7 % (11.5-14.5); White Blood Count 11.4 K/mm3 (4.5-10.0)
[2024-08-01 12:25] LABS: Anion Gap 9 mmol/L (4-12); Blood Urea Nitrogen 9 mg/dL (7-17); Carbon Dioxide 27 mmol/L (22-30); Chloride 97 mmol/L (98-107); Estimated Glomerular Filt Rate > 60; Glucose 162 mg/dL (65-110); Potassium 4.7 mmol/L (3.4-5.0); Sodium 133 mmol/L (137-145)
--- NOTE | 2024-08-01 12:32 | ECG_ITS ---
Test Date: 2024-08-01 12:38:18 Measurements Intervals [place] Rate: 82 P: 73 IA: 145 QRS: 69 QRSD: 89 T: 68 QT: 392 QTc: 458 Interpretive Statements SINUS RHYTHM WITH SINUS ARRHYTHMIA POSSIBLE LEFT ATRIAL ENLARGEMENT BORDERLINE ECG No previous ECG available for comparison Electronically Signed On 08-01-2024 12:48:49 CDT by Tony Yoo D.O.
== END 2024-08-01 11:44 | disposition home or self-care (01) ==
PROVIDERS: PCP Family Medicine; Referring Provider Obstetrics & Gynecology; Visit Provider Anesthesiology
DX: D25.9 Leiomyoma of uterus, unspecified (principal); E11.69 Type 2 diabetes mellitus with other specified complication; E66.9 Obesity, unspecified; Z01.818 Encounter for other preprocedural examination; R94.31 Abnormal electrocardiogram [ECG] [EKG]
CPT/HCPCS: 36415; 80048; 85025; 86850; 86900; 86901; 93005

== ENCOUNTER 2024-08-07 00:57 | Day surgery (SDC) | payer OTHER, SELFPAY ==
[2024-07-31 10:18] VITALS: BMI 31.1
--- NOTE | 2024-07-31 10:28 | PC.NURSE ---
Report to the Outpatient Waiting Room, entrance under the green pavilion located off [facility], at time __0600_ on date _08/07/24_. Planned Procedure Time: _0730_.? Time changes happen often and if your time is changed the preop area will call you the afternoon before. - You and your visitor will be asked to self-screen and do not enter if you have any COVID symptoms. Please call surgeon if you need to reschedule. - A mask is optional within the hospital at this time. Patients may have clear liquids (water, carbonated beverages, clear teas, apple juice) until 3 hours prior to surgery with a maximum of 20 ounces. - No food from midnight until time of surgery and no smoking - Infants may have breast milk until 4 hours before surgery, infant formula 6 hours prior to surgery. - Children will be allowed to drink immediately following surgery.? If applicable, please bring a bottle or sippy cup to assist with drinking. Juice, water, soda, and popsicles are readily available.? For infants on formula, please bring formula the day of surgery.? Pacifiers are allowed. Take only the following medications with a SIP of water on the morning of surgery: __INHALER, PAIN MEDICATION IF NEEDED DO NOT STOP ANY OF YOUR OTHER PRESCRIPTION MEDICATIONS PRIOR TO SURGERY EXCEPT THE FOLLOWING Medications to discontinue per physician VITAMINS Date to take last dose___08/04/24 Please no make-up, nail namibian, hairspray, perfume, deodorant, or body powder the day of surgery.? No jewelry (including any body piercings) or valuables the day of surgery, leave them at home.? Please take a shower or bath the night before, or the morning of, surgery with an antibacterial soap.? Wear comfortable, loose fitting clothing.? Children are encouraged to wear pajamas. - Jewelry must be removed prior to entering the operating room.? Rings and piercings that are not removed may be cut off. - The hospital will not accept responsibility for valuables.? - Please leave all valuables, including medications, at home the day of surgery. If you are going home after surgery, a licensed hyster driver must drive you home.? - NO public transportation without another adult if you receive anesthesia. - We recommend that an adult stay with you for 24 hours following discharge. - We also recommend that you do not drive, make important decision, drink alcoholic beverages, or take any drugs that were not prescribed by your health care provider for at least 24 hours after your discharge time. For Pediatric surgeries, we recommend two adults accompany the child home. Follow any additional instructions given to you from your surgeon. Telephone instructions given to _PATIENTS___and asked if any additional questions and then verbalized understanding. Patient advised to call surgeon office or pre surgery nurse liaison [phone] if any additional questions.
--- NOTE | 2024-08-04 13:02 | PM.IMHP ---
H&P: HPI History of Present Illness Date/Time: 08/04/24 13:02 Chief Complaint: Uterine fibroids and excessive heavy bleeding with failed ablation Narrative: 49-year-old female filled ablation with excessive bleeding fibroids and uterine pain as well as dysmenorrhea and dyspareunia. She will undergo his neurectomy via robot with bilateral salpingectomy. The ovaries will remain. Risks and benefits reviewed including minute exclusive of , aspiration pneumonia, bleeding, transfusion, perforation injury to bowel, bladder, ureters, or other internal organs with need for open laparotomy. She received ACOG handout entitled hysterectomy as well as the de [place] handout. She had all questions answered to her satisfaction. She asked to proceed PMFSH Past Medical History Medical History Abnormal lung sounds Anxiety Asthma Asthma exacerbation Bilateral leg paresthesia BMI 31.0-31.9,adult Breast cancer screening by mammogram Chronic anxiety Chronic neck pain History of cervical fusion at 2 levels around 2017. Chronic respiratory failure with hypoxia and hypercapnia Contact dermatitis due to plant (~07/12/24) Diabetes mellitus type 2 in obese Dysuria Elevated blood pressure reading Hyperlipemia Hypertension Hyponatremia Leukocytosis Mixed hyperlipidemia Obesity (BMI 30.0-34.9) Pelvic pain Situational depression Spinal stenosis of lumbar region Vaginal yeast infection Surgical History Surgical History History of bilateral carpal tunnel release History of cholecystectomy History of fusion of cervical spine Family History Family History Mother Alcoholism Diabetes mellitus Depression Anxiety Father Asthma Daughter Asthma Anxiety Depression Grandparent Cancer Son Anxiety Depression Sibling Anxiety Depression Other Family history of alcoholism Hypertension Social History Social History Smoking packs per day: 1.5 Smoking cigarettes per day: 30.0 Years smoked: 30 Smoking pack-years: 45.00 Smoking status: Current every day smoker Tobacco type: cigarettes Additional smoking assessment comments: 1-2 packs a day Alcohol intake: current Alcohol use details: RARE USE Substance use: never Substance use type: does not use Do You Feel Safe in your Home?: Yes Lack of Transportation: No Lack of Food: Never True Current Housing: I Have Housing Concerned About Future Housing: No Difficulty Paying Gas/Electric Bills: No Difficulty Paying for Meds: No Currently Unemployed: No Education: High School Diploma/GED Difficulty w/ Childcare or Family Care: No Living arrangements: with family Gender identity (if verbalized by the patient): Male Agree to blood products: Yes Meds Home Medications and Allergies Home Medications Medication Instructions Recorded Confirmed Type cholecalciferol (vitamin D3) 125 5,000 unit PO HS 07/17/22 07/31/24 History mcg (5,000 unit) capsule multivitamin (Daily Multi-Vitamin 1 tablet PO HS 07/17/22 07/31/24 History tablet) albuterol sulfate 90 mcg/actuation 2 puff inhalation Q4H PRN 01/01/24 07/31/24 Rx aerosol inhaler shortness of breath or wheezing #8.5 grams hydrocodone 10 mg-acetaminophen 1 tablet PO Q12H PRN pain #60 tabs 07/13/24 07/31/24 Rx 325 mg tablet dulaglutide 3 mg/0.5 mL 3 mg (0.5 mL) subcut WEEKLY #2 mL 07/14/24 07/31/24 [facility] budesonide 160 mcg-glycopyr 9 See Rx Instructions .Route .COMPLEX 07/31/24 07/31/24 History mcg-formot 4.8 mcg/actuation HFA inhaler (Breztri Aerosphere) citalopram 40 mg tablet 40 mg PO HS 07/31/24 07/31/24 History duloxetine 30 mg capsule,delayed 30 mg PO HS 07/31/24 07/31/24 History releas
[2024-08-07] VITALS (9 sets, daily range): BP systolic 130–175; BP diastolic 72–95; PULSE 91–107; RESP 14–22; TEMP 36.3–37.3; O2SAT 92–98
[2024-08-07] MEDS: LACTATED RINGERS 1,000 ML 30 ML IV CONT ×2 (06:30→09:00)
--- NOTE | 2024-08-07 06:59 | WPDANESEPPF ---
Anes - Initial Pre Proc Eval Procedure: Operation Date: 08/07/24 07:30 Proposed Procedures p Robotic Assisted Total Vaginal Hysterectomy with Bilateral Salpingectomy - Maximino Esteves MD Date/Time: 08/07/24 06:59 Surgeon: Maximino Esteves MD Pre Op Diagnosis: failed ablation, excessive bleeding, fibroids, Patient Data Age: 49 Gender: F Height: 1.7 m Weight: 90 kg Allergies Allergy/AdvReac Type Severity Reaction Status Date / Time Sulfa (Sulfonamide Allergy Intermediate Hives Verified 07/31/24 10:14 Antibiotics) trimethoprim [From ] Allergy Intermediate Hives Verified 07/31/24 10:14 codeine Allergy Unknown Unknown Verified 07/31/24 10:14 Home Medications Medication Instructions Recorded Confirmed Type cholecalciferol (vitamin D3) 125 5,000 unit PO HS 07/17/22 07/31/24 History mcg (5,000 unit) capsule multivitamin (Daily Multi-Vitamin 1 tablet PO HS 07/17/22 07/31/24 History tablet) albuterol sulfate 90 mcg/actuation 2 puff inhalation Q4H PRN 01/01/24 07/31/24 Rx aerosol inhaler shortness of breath or wheezing #8.5 grams hydrocodone 10 mg-acetaminophen 1 tablet PO Q12H PRN pain #60 tabs 07/13/24 07/31/24 Rx 325 mg tablet dulaglutide 3 mg/0.5 mL 3 mg (0.5 mL) subcut WEEKLY #2 mL 07/14/24 07/31/24 Rx subcutaneous pen injector (Trulicity) budesonide 160 mcg-glycopyr 9 See Rx Instructions .Route .COMPLEX 07/31/24 07/31/24 History mcg-formot 4.8 mcg/actuation HFA inhaler (Breztri Aerosphere) citalopram 40 mg tablet 40 mg PO HS 07/31/24 07/31/24 History duloxetine 30 mg capsule,delayed 30 mg PO HS 07/31/24 07/31/24 History release lisinopril 20 mg tablet 20 mg PO HS 07/31/24 07/31/24 History rosuvastatin 5 mg tablet 5 mg PO HS 07/31/24 07/31/24 History metformin 500 mg tablet,extended 1,500 mg PO HS #270 tabs 08/03/24 Rx release 24 hr Patient hx anesthesia problems: none Family hx anesthesia problems: none Results Review: All pre-operative results and documents have been reviewed as part of the pre-operative evaluation. [facility] Past Medical History Medical History (Updated 08/07/24 @ 07:00 by Danny Mcpherson DO) Abnormal lung sounds Anxiety Asthma Asthma exacerbation Bilateral leg paresthesia BMI 31.0-31.9,adult Breast cancer screening by mammogram Chronic anxiety Chronic neck pain History of cervical fusion at 2 levels around 2016. Chronic respiratory failure with hypoxia and hypercapnia Chronic, continuous use of opioids Contact dermatitis due to plant (~07/12/24) Diabetes mellitus type 2 in obese Dysuria Elevated blood pressure reading Hyperlipemia Hypertension Hyponatremia Leukocytosis Mixed hyperlipidemia Obesity (BMI 30.0-34.9) AP (obstructive sleep apnea) home sleep study 05/22/2024 with AP with AHI of 9.0 with oxygen saturation to 75% with need for CPAP titration. Pelvic pain Situational depression Spinal stenosis of lumbar region Vaginal yeast infection Surgical History Surgical History History of bilateral carpal tunnel release History of cholecystectomy History of fusion of cervical spine Family History Family History Mother Alcoholism Diabetes mellitus Depression Anxiety Father Asthma Daughter Asthma Anxiety Depression Grandparent Cancer Son Anxiety Depression Sibling Anxiety Depression Other Family history of alcoholism Hypertension Social History Social History Smoking packs per day: 1.5 Smoking cigarettes per day: 30.0 Years smoked: 30 Smoking pack-years: 45.00 Smoking status: Current every day smoker Tobacco type: cigarettes Additional smoking assessment comments: 1-2 packs a day Alcohol intake: current Alcohol use details: RARE USE Substance use: never Substance use typ
--- NOTE | 2024-08-07 07:08 | WPDHPUPDATE1 ---
History and Physical Update Update Date/Time: 08/07/24 07:08 History and Physical has been reviewed, including an updated exam of the patient. There are NO changes in the patient's condition. Risks, benefits, and alternatives have been discussed and questions answered. Patient agrees to proceed with procedure.
[2024-08-07 07:13] LABS: Glucose Point of Care 178 mg/dl (65-105)
[2024-08-07] MEDS: ceFAZolin 2 GM/D5W 50 ML 2 GM/50 ML BAG IVPB (07:29)
[2024-08-07] MEDS: KETOROLAC 15 MG/ML VIAL (*BKC) IV PUSH (07:34)
[2024-08-07] MEDS: ACETAMINOPHEN 500 MG TABLET 1000 MG PO (07:34)
[2024-08-07 07:47] LABS: BEDSIDEPREGUCG Negative (Negative)
--- NOTE | 2024-08-07 08:43 | P.OP_ITS ---
Procedure Note - Detailed Date of Procedure 08/07/24 Pre-op Diagnosis failed ablation, excessive bleeding, fibroids, Post-op Diagnosis Same Procedure Performed Robotic total vaginal hysterectomy and bilateral salpingectomy Surgeon Maximino Esteves MD Anesthesia General Indications 49-year-old female with fibroid uterus and failed ablation Findings large fibroid uterus / normal-appearing ovaries and tubes Description of Procedure the patient was prepped draped in the sterile fashion placed in the dorsal lithotomy position. Under excellent endotracheal anesthesia weighted speculum placed in posterior fornix. Anterior lip cervix grasped with single-tooth. Uterus sounded to cm. Serial passage of the number 10 WILDER 3. 0.5 cold cup. The 16 Armenian catheter was placed in bladder. The single-tooth was removed bladder drained of clear urine with 16 Armenian catheter gloves were changed. A supraumbilical incisionMade. Veress needle passed in the abdomen. Abdomen filled with CO2 gas [id number]. The 8mm trocar advanced in the abdomen. Downside visualized no injury seen. Ablation placed in Trendelenburg and right left lateral quadrant incision made. 8Mm trocars advanced under direct visualization assuring no injury. A right upper quadrant incision made the 8mm trocar advanced under direct visualization assuring no injury. The robot was docked. Attention was turned to the console. The left round ligament was grasped, burned, cut. Anterior bladder flap was formed by sharply dissecting the peritoneum and read bringing this across to the opposite round ligament was clamped, burned, cut. The left fallopian tube was sharply dissected away from the ovarian complex and left attached to the uterus. In similar fashion the right fallopian tube was sharply dissected away from the ovarian complex and left attached to the uterus. Next the ovary on left was conserved clamping burning cutting utero-ovarian ligament and bringing this the previous cut in similar fashion utero-ovarian ligament on the right was skeletonized clamping burning cutting and bringing this to level of previously cut this conserve the right. The cardinal broad ligaments on the left were then skeletonized clamping burning cutting down the irregular surface of the uterus and cervix which contain. The uterine vessels were large and tortuous these were individually clamped, burned, cut. In similar fashion the cardinal broad ligaments were skeletonized clamping burning cutting and hugging the cervix uterus until the uterine vessels could be seen on the right. These were individually clamped, hemostasis was assured and blanching the uterus was colpotomy incision was made and the cervix uterus tubes removed through the vagina. The vagina then closed with continuous running V lock from lateral edge to lateral edge back to the midline. Irrigation undertaken to clear and the raw surface areas sprinkled with the robot was undocked. The gas removed from the abdomen. The incisions closed with 4-0 Monocryl glue. The instruments were removed from the vagina and the patient went recovery in satisfactory condition. All sponge, needle, instrument counts were correct. There were no immediate complications Estimated Blood Loss 25 Drains No Packing No Pathology Yes Complications No immediate complications Condition Stable Disposition PACU
--- NOTE | 2024-08-07 08:48 | PM.DS ---
DS: Admitting Diagnosis Discharge Date 08/07/2024 Admitting Diagnosis excessive bleeding/ uterine fibroid DS: Discharge Diagnosis Discharge Diagnosis (1) Excessive bleeding: Code(s): R58 - Hemorrhage, not elsewhere classified Status: Acute (2) Uterine fibroid: Code(s): D25.9 - Leiomyoma of uterus, unspecified Status: Acute DS: Summary Hospital Course Reason for hospitalization: patient was admitted for robotic total hysterectomy bilateral salpingectomy on 1323. She underwent an unremarkable procedure. Patient's hospital course was unremarkable. She remained afebrile. She was up, voiding without difficulty, eating regular diet, ambulating, and generally without complaints Hospital Course: see above notation Time Spent with Patient Time attestation: Total time spent providing and/or coordinating discharge services: Exam Const: General: cooperative, healthy appearing and comfortable Orientation/consciousness: oriented to person, oriented to place and oriented to time Resp: Effort & Inspection: normal respiratory effort Cardio: Rate: regular rate Rhythm: regular rhythm Heart sounds: S1 normal heart sound present and S2 normal heart sound present GI: Inspection: normal to inspection and incision ( was are clean dry and intact) DS: Data Data Completed and Pending Pending studies at discharge: Pending at discharge 08/07/24 08:06 Surgical [PTH] Routine Labs on day of discharge: Labs from last 24 hours 08/07/24 08/07/24 07:37 06:50 POC Capillary Glucose 178 H POC Urine HCG, Qual Negative Discharge Plan Discharge Patient Disposition: Home, Self-Care Patient Instructions: Hysterectomy (DC) Stand Alone Forms: General Discharge Instructions Follow-up/Referrals: Maximino Lala MD [Physician] - Discharge Medications: New hydrocodone-acetaminophen 5-325 mg tablet 1 tablet PO Q4H PRN (Reason: pain) Qty: 20 0RF No Action cholecalciferol (vitamin D3) 125 mcg (5,000 unit) capsule 5,000 unit PO HS multivitamin [Daily Multi-Vitamin] Tablet 1 tablet PO HS Trulicity 3 mg/0.5 mL pen injector 3 mg subcut WEEKLY Qty: 2 11RF Rx Instructions: saturday Breztri Aerosphere 160-9-4.8 mcg/actuation HFA aerosol inhaler See Rx Instructions .ROUTE .COMPLEX Rx Instructions: 2 inh inhaled TAKES AT NOON citalopram 40 mg tablet 40 mg PO HS lisinopril 20 mg tablet 20 mg PO HS rosuvastatin 5 mg tablet 5 mg PO HS duloxetine 30 mg capsule,delayed release(DR/EC) 30 mg PO HS albuterol sulfate 90 mcg/actuation HFA aerosol inhaler 2 puff inhalation Q4H PRN (Reason: shortness of breath or wheezing) Qty: 8.5 3RF hydrocodone-acetaminophen 10-325 mg tablet 1 tablet PO Q12H PRN (Reason: pain) Qty: 60 0RF metformin 500 mg tablet extended release 24 hr 1,500 mg PO HS Qty: 270 3RF
[2024-08-07] MEDS: fentaNYL CITRATE INJ (*CRX) 100 MCG/2 ML VIAL 25 MCG IV PUSH ×8 (09:08→09:40)
[2024-08-07] MEDS: INSULIN HUMAN REGULAR (*BKC) 100 UNITS/ML IV PUSH (09:35)
[2024-08-07] MEDS: HYDROmorphone HCL INJ (*CRX) 1 MG/ML SYR 0.5 MG IV PUSH ×4 (09:45→10:20)
[2024-08-07 10:01] LABS: Glucose Point of Care 233 mg/dl (65-105)
--- NOTE | 2024-08-07 10:34 | OBPPTRN ---
Patient transferred to post room #289 via bed. Support person present. Oriented to unit, room, information board, rooming in, admission packet and security measures. Patient verbalizes understanding.
[2024-08-07] MEDS: DOCUSATE SODIUM 100 MG CAPSULE PO (10:47)
[2024-08-07] MEDS: DEXTROSE 5%/LACTATED RINGERS 1,000 ML 125 ML IV CONT (10:47)
[2024-08-07] MEDS: HYDROcodone/acetaminophen (*CRX) 10-325 MG TABLET 1 TAB PO (10:47)
[2024-08-07] MEDS: ENOXAPARIN 40 MG/0.4 ML SYRINGE SUB-Q (10:48)
[2024-08-07] MEDS: IBUPROFEN 600 MG TABLET PO (13:32)
[2024-08-07] MEDS: SIMETHICONE 80 MG TAB.CHEW PO (13:33)
== END 2024-08-07 14:15 | disposition home or self-care (01) ==
LOC: ANHSURGERY 07:11 → ANHOB2 10:29
PROVIDERS: PCP Family Medicine; Visit Provider Obstetrics & Gynecology
PROC: (CPT 58552; principal; 2024-08-07 07:30)
DX: D25.0 Submucous leiomyoma of uterus (principal); D25.1 Intramural leiomyoma of uterus; D25.2 Subserosal leiomyoma of uterus; N70.11 Chronic salpingitis; N93.9 Abnormal uterine and vaginal bleeding, unspecified; J45.909 Unspecified asthma, uncomplicated; J96.12 Chronic respiratory failure with hypercapnia; J96.11 Chronic respiratory failure with hypoxia; I10 Essential (primary) hypertension; E78.2 Mixed hyperlipidemia; E11.9 Type 2 diabetes mellitus without complications; G47.33 Obstructive sleep apnea (adult) (pediatric); F41.9 Anxiety disorder, unspecified; Z98.1 Arthrodesis status; Z79.891 Long term (current) use of opiate analgesic; E66.9 Obesity, unspecified; Z68.30 Body mass index [BMI] 30.0-30.9, adult; Z79.51 Long term (current) use of inhaled steroids; Z79.85 Long-term (current) use of injectable non-insulin antidiabetic drugs; Z79.84 Long term (current) use of oral hypoglycemic drugs; F17.210 Nicotine dependence, cigarettes, uncomplicated
CPT/HCPCS: 58552; S2900; 36415; 80048; 82948; 85025; 86850; 86900; 86901; 88307; 93005; 99199; A9270; J0690; J1100; J1170; J1650; J1815; J1885; J2250; J2405; J2704; J3010; J7030; J7120; J7121

== ENCOUNTER 2024-08-15 10:32 | Emergency (ER) | payer OTHER, SELFPAY ==
[2024-08-15 10:40] VITALS: BP 128/71; PULSE 121; RESP 20; TEMP 36.2; O2SAT 95
[2024-08-15 11:09] LABS: EDUAAPPEAR Clear; EDUABILI Negative (Negative); EDUABLOOD 1+ (Negative); EDUACOLOR1 Yellow; EDUAGLUCOSE Negative (Negative); EDUAKETONE Negative (Negative); EDUALEUKO Negative (Negative); EDUANITRATE Negative (Negative); EDUAPROTEIN 2+ (Negative); EDUAUROBILI 0.2
== END 2024-08-15 11:50 | disposition left against medical advice (07) ==
PROVIDERS: Emergency Provider Nurse Practitioner; PCP Family Medicine
DX: R33.9 Retention of urine, unspecified (principal)
CPT/HCPCS: 81003; 99199

== ENCOUNTER 2024-08-15 17:27 | Emergency (ER) | payer OTHER, SELFPAY ==
--- NOTE | ~2024-08-15 | XR_ITS ---
XR chest 2V DATE: 08/15/2024 18:42 INDICATION: Coarse lung sounds TECHNIQUE: PA and lateral views COMPARISON: None FINDINGS: Status post C6-C7 anterior cervical spine surgical fusion. Mild thoracic dextroscoliosis, minimal degenerative spurring. Moderate bilateral hyperinflation. No pulmonary infiltrate or consolidation, pleural effusion or pulm onary vascular congestion or pneumothorax is detected. Normal heart size. No hilar or mediastinal enlargement. IMPRESSION: Moderate hyperinflation; no active cardiopulmonary disease Reviewed, dictated and finalized at location A.
[2024-08-15 17:28] VITALS: BP 150/82; PULSE 124; RESP 16; TEMP 36.3; O2SAT 95
[2024-08-15] MEDS: SODIUM CHLORIDE 0.9% IV 1,000 ML 999 ML IV CONT (19:01)
[2024-08-15 19:16] LABS: Basophils Absolute Auto 0.1 K/mm3 (0.0-0.1); Basophils Percent Auto 0.4 % (0.2-1.2); Eosinophils Absolute Auto 0.2 K/mm3 (0-0.3); Eosinophils Percent Auto 1.2 % (0-4.4); Hematocrit 43.8 % (37.0-47.0); Hemoglobin 14.9 g/dL (12.0-15.0); Immature Granulocyte Absolute 0.13 K/mm3 (0.00-0.031); Immature Granulocyte Percent A 0.7 % (0-0.5); Lymphocytes Absolute Auto 2.57 K/mm3 (0.9-3.2); Lymphocytes Percent Auto 14.2 % (18.3-44.2); Mean Corpuscular Hemoglobin 30.1 pg (26-34); Mean Corpuscular Volume 88.5 fl (80-100); Mean Platelet Volume 8.8 fl (7.4-10.4); Monocytes Absolute Auto 1.7 K/mm3 (0.1-0.6); Monocytes Percent Auto 9.3 % (2.6-8.5); Neutrophils Absolute Auto 13.5 K/mm3 (1.3-6.7); Neutrophils Percent Auto 74.2 % (45.5-73.1); Platelet Count Result 399 k/mm3 (150-375); Red Blood Count 4.95 M/mm3 (4.2-5.4); Red Cell Distribution Width 12.7 % (11.5-14.5); White Blood Count 18.1 K/mm3 (4.5-10.0)
[2024-08-15 19:18] LABS: Add Urine Microscopic? NO; Appearance Urine Clear (Clear); Bilirubin Urine Negative (Negative); Blood Urine Negative (Negative); Color Urine Yellow (Yellow); Glucose Urine UA Negative (Negative); Ketones Urine Negative (Negative); Leukocyte Esterase Ur Negative LEU/UL (Negative); Nitrate Urine Negative (Negative); Protein Urine Negative (Negative); Specific Grav Ur 1.004 (1.001-1.035); Urobilinogen Urine 0.2 mg/dL (<2.0); pH Urine 6.5 (5.0-9.0)
[2024-08-15 19:27] LABS: Alanine Aminotransferase 16 U/L (6-35); Albumin Level 4.1 g/dL (3.5-5.1); Alkaline Phosphatase 94 U/L (38-126); Anion Gap 8 mmol/L (4-12); Aspartate Amino Transferase 19 U/L (14-36); Bilirubin,Total 0.2 mg/dL (0.2-1.3); Blood Urea Nitrogen 6 mg/dL (7-17); Calcium 9.1 mg/dL (8.4-10.2); Carbon Dioxide 30 mmol/L (22-30); Chloride 96 mmol/L (98-107); Estimated CRCL calculation 128 ml/min; Estimated Glomerular Filt Rate > 60; Glucose 146 mg/dL (65-110); Sodium 134 mmol/L (137-145)
--- NOTE | 2024-08-15 20:17 | ED.FEMALEGU ---
HPI - Female Genitourinary General Chief complaint: Urogenital-Female Stated complaint: urinary retention post op Time Seen by Provider: 08/15/24 17:40 History of Present Illness HPI Narrative: Patient is a 49-year-old female who presents to the ER approximately 10 days postop hysterectomy. She reports that Dr. Lackey performed her surgery on Saturday the . Patient reports it was done laparoscopically. She reports that she has not been urinating very often in the last 2 days. Patient reports her urination as dribbling. She reports she had a bowel movement earlier today. Patient called her OBGYN and they advised her to come to the ER in case she had urinary retention. She endorses pain from her hysterectomy and bloating, but denies any new lower abdominal pain. Patient reports she does not want to be in the ER. She denies any chest pain, shortness a breath, lower extremity swelling. Related Data Home Medications Medication Instructions Recorded Confirmed cholecalciferol (vitamin D3) 125 5,000 unit PO HS 07/17/22 08/07/24 mcg (5,000 unit) capsule multivitamin (Daily Multi-Vitamin 1 tablet PO HS 07/17/22 08/07/24 tablet) budesonide 160 mcg-glycopyr 9 See Rx Instructions .Route .COMPLEX 07/31/24 08/07/24 mcg-formot 4.8 mcg/actuation HFA inhaler (Breztri Aerosphere) citalopram 40 mg tablet 40 mg PO HS 07/31/24 08/07/24 duloxetine 30 mg capsule,delayed 30 mg PO HS 07/31/24 08/07/24 release lisinopril 20 mg tablet 20 mg PO HS 07/31/24 08/07/24 rosuvastatin 5 mg tablet 5 mg PO HS 07/31/24 08/07/24 Allergies Allergy/AdvReac Type Severity Reaction Status Date / Time Sulfa (Sulfonamide Allergy Intermediate Hives Verified 08/15/24 17:32 Antibiotics) trimethoprim [From ] Allergy Intermediate Hives Verified 08/15/24 17:32 codeine Allergy Unknown Unknown Verified 08/15/24 17:32 Review of Systems Review of Systems: All systems reviewed & are unremarkable except as noted in HPI and below PMFSH Past Medical History Medical History Abnormal lung sounds Anxiety Asthma Asthma exacerbation Bilateral leg paresthesia BMI 31.0-31.9,adult Breast cancer screening by mammogram Chronic anxiety Chronic neck pain History of cervical fusion at 2 levels around 2017. Chronic respiratory failure with hypoxia and hypercapnia Chronic, continuous use of opioids Contact dermatitis due to plant (~07/12/24) Diabetes mellitus type 2 in obese Dysuria Elevated blood pressure reading Hyperlipemia Hypertension Hyponatremia Leukocytosis Mixed hyperlipidemia Obesity (BMI 30.0-34.9) AP (obstructive sleep apnea) home sleep study 05/22/2024 with AP with AHI of 9.0 with oxygen saturation to 75% with need for CPAP titration. Pelvic pain Situational depression Spinal stenosis of lumbar region Vaginal yeast infection Surgical History Surgical History History of bilateral carpal tunnel release History of cholecystectomy History of fusion of cervical spine Family History Family History Mother Alcoholism Diabetes mellitus Depression Anxiety Father Asthma Daughter Asthma Anxiety Depression Grandparent Cancer Son Anxiety Depression Sibling Anxiety Depression Other Family history of alcoholism Hypertension Social History Social History Smoking packs per day: 1.5 Smoking cigarettes per day: 30.0 Years smoked: 30 Smoking pack-years: 45.00 Smoking status: Current every day smoker Tobacco type: cigarettes Additional smoking assessment comments: 1-2 packs a day Alcohol intake: current Alcohol use details: RARE USE Substance use: never Substance use type: does not use Do You Feel Safe in your Home?: Yes Lack of Transportation: N
[2024-08-15 20:40] VITALS: BP 140/84; PULSE 99; RESP 16; TEMP 36.4; O2SAT 97
== END 2024-08-15 20:44 | disposition home or self-care (01) ==
PROVIDERS: Emergency Provider Registered Nurse; PCP Family Medicine
DX: N99.89 Other postprocedural complications and disorders of genitourinary system (principal); R33.9 Retention of urine, unspecified; Z90.710 Acquired absence of both cervix and uterus; I10 Essential (primary) hypertension; J45.909 Unspecified asthma, uncomplicated; J96.11 Chronic respiratory failure with hypoxia; J96.12 Chronic respiratory failure with hypercapnia; E11.9 Type 2 diabetes mellitus without complications; E78.2 Mixed hyperlipidemia; E66.9 Obesity, unspecified; Z68.29 Body mass index [BMI] 29.0-29.9, adult; G47.33 Obstructive sleep apnea (adult) (pediatric); F41.9 Anxiety disorder, unspecified; F17.210 Nicotine dependence, cigarettes, uncomplicated; Z90.49 Acquired absence of other specified parts of digestive tract; Z79.899 Other long term (current) drug therapy; Z79.84 Long term (current) use of oral hypoglycemic drugs; Z79.85 Long-term (current) use of injectable non-insulin antidiabetic drugs
CPT/HCPCS: 36415; 71046; 80053; 81003; 85025; 96360; 96361; 99283; J7030

== ENCOUNTER 2025-01-01 13:20 | Outpatient (CLI) | payer OTHER, SELFPAY ==
--- NOTE | ~2025-01-01 | MMUS_ITS ---
EXAMINATION: MM diagnostic tristen BI w andrse, US breast LT limited HISTORY: Left breast lump, decreased following antibiotic therapy TECHNIQUE: 3-D tomosynthesis images of the breasts were performed and synthetic 2-D images were gener ated. CAD analysis was submitted and interpreted. High resolution limited left breast ultrasound was performed. COMPARISON: None BREAST PARENCHYMAL COMPOSITION:Dense: The breasts are heterogeneously dense, which may obscure small masses. FINDINGS: MAMMOGRAPHIC FINDINGS: Possible 9 mm low-density partially obscured mass at the upper left breast in the subareolar region. No suspicious mammographic abnormality seen in the right breast. No suspicious masses or calcificatio ns. ULTRASOUND: At the left breast 12:00 position, 1 cm from the nipple, there is a 9 x 9 x 6 mm homogeneous hypoecho ic solid mass, parallel, with mild posterior through transmission. IMPRESSION: 9 x 9 x 6 cm mass at the 12 clock position left breast, 1 cm from the nipple, as detailed above. 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 Alternatively, six-month follow-up ultrasou nd can be performed to assess for stability. BI-RADS category 4, suspicious findings. Reviewed, dictated and finalized at location . FIC RECORDER IMPRESSION: 9 x 9 x 6 cm mass at the 12 clock position left breast, 1 cm from the nipple, as detailed above. 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 Alternatively, six-month follow-up ultrasound can be per formed to assess for stability. BI-RADS category 4, suspicious findings.
--- OUTSIDE RECORDS SUMMARY | 2025-01-01 13:23 | XMS_ITS | Encounter Summary ---
Author Organization [facility] Address [address] [place] [id number] Care Team Providers Care Auto Fleet Maintenance Manager Name Role Phone Raudel Stinson MD Primary Care Provider [phone] Encounter Details Date Type Department Care Team (Late st Contact Info) Description 04/10/2021 Prep for Procedure [facility] [address] [place] [address] Dilan Pearce MD [address] [place] [id number] Social History Tobacco Use Types Packs/Day Years Used Date Smoking Tobacco: Every Day Cigarettes Smokeless Tobacco: Never Comments:pcp to middle school guidance counselor Alcohol Use Standard Drinks/Week Comments Yes 0 (1 standard drink = 0.6 oz pur e alcohol) occ Comments No Sex and Gender Information Value Date Recorded Sex Assigned at Not on file 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 No / Unsure 04/07/2021 2:52 PM CDT documented as of this encounter Plan of Treatment Not on file documented as of this encounter Visit Diagnoses Diagnosis Preop testing- Primary Preoperative examination, unspecified documented in this encounter Additional Health Concerns Infection Onset Date Last Indicated Resolved Time COVID-19 Rule Out 04/17/2021 04/17/2021 04/19/2021 1:10 PM CDT documented as of this encounter Care Teams Auto Fleet Maintenance Manager Relationship Specialty Start Date End Date Raudel Stinson MD [address] [place] [id number] PCP - General INTERNAL MEDICINE 11/12/19 documented as of this encounter
--- OUTSIDE RECORDS SUMMARY | 2025-01-01 13:24 | XMS_ITS | Encounter Summary ---
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
--- OUTSIDE RECORDS SUMMARY | 2025-01-01 13:24 | XMS_ITS | Patient Health Summary ---
Author Organization [facility] Address [address] [place] [address] Care Team Providers Care Director Of Perioperative Services Name Role Phone Raudel Stinson MD Primary Care Provider [phone] Note from [facility],non-owned Affiliates and Associated Physician Practices is amultiple site organization consisting of ambulatory clinics and hospital sitesin [place], [place], [place] and [place]. This disclosure is being madepursuant to the Care Everywhere program and may not contain all information available regarding this patient. Last updated 18.[facility] Allergies * Sulfa Drugs(Unknown) Medications * Be aware that medications may not be up to date on this document. Alwaysverify current medications with the patient. * metFORMIN (GLUCOPHAGE) 500 MG tablet Take 2,000 mg by mouth once daily * citalopram (CELEXA) 40 MG tablet Take 40 mg by mouth once daily * lisinopril (PRINIVIL; ZESTRIL) 10 MG tablet Take 10 mg by mouth once daily * simvastatin (ZOCOR) 10 MG tablet Take 10 mg by mouth at bedtime * doxycycline hyclate (VIBRAMYCIN) 100 MG capsule Take 100 mg by mouth every 12 hours * acetaminophen-codeine (TYLENOL #3) 300-30 MG tablet Take 2 tablets by mouth every 6 hours as needed for Pain Social History Tobacco Use Types Packs/Day Years Used Date Smoking Tobacco: Every Day Cigarettes Smokeless Tobacco: Never Alcohol Use Standard Drinks/Week Comments Yes 0 (1 standard drink = 0.6 oz pur e alcohol) rare socially Sex and Gender Information Value Date Recorded Sex Assigned at Not on file Gender Identity Not on file Sexual Orientation Not on file Last Filed Vital Signs Vital Sign Reading Time Taken Comments Blood Pressure 150/84 11/26/2019 2:39 PM UI ARCHITECT Pulse 75 11/26/2019 2:39 PM UI ARCHITECT Temperature 36.3 C (97.3 F) 11/26/2019 10:02 AM UI ARCHITECT Respiratory Rate 16 11/26/2019 2:39 PM UI ARCHITECT Oxygen Saturation 98% 11/26/2019 2:39 PM UI ARCHITECT Inhaled Oxygen Concentration - - Weight 90.7 kg (200 lb) 11/26/2019 10:02 AM UI ARCHITECT Height 170.2 cm (5' 7 ) 11/26/2019 10:02 AM UI ARCHITECT Body Mass Index 31.32 11/26/2019 10:02 AM UI ARCHITECT Procedures * CARDIAC EKG ORDER(Performed 12/14/2019) * CARDIAC EKG ORDER(Performed 11/27/2019) * CT LUMBAR SPINE WO CONTRAST(Performed 11/26/2019) Performed for Abdominal pain, generalized * CT THORACIC SPINE WO CONTRAST(Performed 11/26/2019) Performed for Abdominal pain, generalized * CT CHEST ABDOMEN PELVIS W CONT(Performed 11/26/2019) Performed for Abdominal pain, generalized * EKG 12-LEAD(Performed 11/26/2019) Performed for Abdominal pain, generalized * PT-INR [facility](Performed 11/26/2019) * LACTIC ACID BLOOD(Performed 11/26/2019) * TSH(Performed 11/26/2019) * T4 FREE(Performed 11/26/2019) * TROPONIN I(Performed 11/26/2019) * MAGNESIUM BLOOD(Performed 11/26/2019) * HCG BETA BLOOD QUANTITATIVE(Performed 11/26/2019) * LIPASE BLOOD(Performed 11/26/2019) * COMPREHENSIVE METABOLIC PANEL(Performed 11/26/2019) * CBC W AUTO DIFFERENTIAL(Performed 11/26/2019) * URINALYSIS W/MICROSCOPIC NO CULTURE(Performed 11/26/2019) * HCG URINE QUALITATIVE - POINT OF CARE(Performed 11/26/2019) Results * CARDIAC EKG ORDER (12/14/2019 10:20 AM UI ARCHITECT) Only the most recent of2 resultswithin the time period is included. Narrative 12/14/2019 10:20 AM UI ARCHITECT Ordered by an unspecified provider. Scanned Document CARDIAC SERVICES ORD ERABLES * CT CHEST ABDOMEN PELVIS W CONT (11/26/2019 12:17 PM UI ARCHITECT) Anatomical Region Laterality Modality Chest, Abdomen, Pelvis Computed Tomography 11/26/2019 1:07 PM UI ARCHITECT Impressions 11/26/2019 2:02 PM UI ARCHITECT IMPRESSION: 1. Multiple tree-in-bud and subsolid nodules throughout both lungs, greatest within the left lower lobe and bilateral upper lobes. This likely represents infection, including atypical infection, or aspiration. Recommend 3 month follow-up to assess for resolution. 2. Concentrically enlarged cervix may represent a normal variant finding, though correlation with clinical exam is suggested. Uterine fibroid. Dictated by Quinton Swain MD (vice president lending). This report was approved by Quinton Swain on 11/26/2019 1:36 PM . I, Dr. MAGDALENA HANKS M.D. have personally reviewed and interpreted this examination/study. This report was electronically signed by MAGDALENA HANKS M.D. on 11/26/2019 2:02 PM . Narrative 11/26/2019 2:02 PM UI ARCHITECT EXAMINATION: Computed tomography (CT) of the chest, abdomen, and pelvis with contrast HISTORY: 44-year-old female with one month of flank pain TECHNIQUE: CT of the chest, abdomen, and pelvis was performed after the uneventful administration of 100 mL of Isovue-370 intravenous contrast according to standard protocol. COMPARISON: No prior study is available for comparison. FINDINGS: Chest: There is a left-sided aortic arch. The aorta and main pulmonary arteries are normal in course and caliber. The lungs are clear of focal consolidation. There are multiple tree-in-bud nodules within both lungs, greatest within the left lower lobe and both upper lobes. Scattered additional subcentimeter solid nodules are noted. There is mild atelectasis versus airspace opacification at the left lung base abutting the diaphragm. No pleural effusion or focal pleural thickening is identified. There is no evidence of pneumothorax. The trachea is patent and midline. The heart size is normal. No pericardial effusion is present. No mediastinal, hilar, supraclavicular, or axillary lymphadenopathy is seen. The right thyroid gland is mildly enlarged with a hyperattenuating nodule anteriorly measuring 8 mm. Abdomen/pelvis: The liver enhances homogenously. The gallbladder is surgically absent. The intrahepatic and extrahepatic bile ducts are nondilated. The spleen enhances homogenously without focal lesion. The pancreas and adrenal glands are normal. The kidneys enhance symmetrically. There is no evidence of renal calculus or hydronephrosis. The esophagus and stomach appear normal. The small bowel and large bowel are normal in caliber without evidence of wall thickening or obstruction. The appendix appears normal without appendicolith or surrounding inflammatory changes. No free air or free fluid is identified within the abdomen. There is no abdominal lymphadenopathy. The urinary bladder is distended with fluid and appears normal. The cervix appears concentrically enlarged. There is a cystic structure in the central cervix which likely represents a nabothian cyst. There is a probable uterine fibroid in the lower uterine segment measuring 3.2 cm (series 4 image 108). No free fluid is seen within the pelvis. There is no pelvic lymphadenopathy. Bone windows demonstrate no suspicious lytic or blastic lesions. The visible osseous structures are intact. Anterior cervical spinal fusion hardware is partially imaged. Procedure Note Magdalena Hanks MD - 11/26/2019 EXAMINATION: Computed tomography (CT) of the chest, abdomen, and pelvis with contrast HISTORY: 44-year-old female with one month of flank pain TECHNIQUE: CT of the chest, abdomen, and pelvis was performed after the uneventful administration of 100 mL of Isovue-370 intravenous contrast according to standard protocol. COMPARISON: No prior study is available for comparison. FINDINGS: Chest: There is a left-sided aortic arch. The aorta and main pulmonary arteries are normal in course and caliber. The lungs are clear of focal consolidation. There are mekakpzvqftx-xf-xha nodules within both lungs, greatest within the left lower lobe and both upper lobes. Scattered additional subcentimeter solid nodules are noted. There is mild atelectasis versus airspace opacification at the left lung base abutting the diaphragm. No pleural effusion or focal pleural thickening is identified. There is no evidence of pneumothorax. The trachea is patent and midline. The heart size is normal. No pericardial effusion is present. No mediastinal, hilar, supraclavicular, or axillary lymphadenopathy isseen. The right thyroid gland is mildly enlarged with a hyperattenuatingnodule anteriorly measuring 8 mm. Abdomen/pelvis: The liver enhances homogenously. The gallbladder is surgically absent.The intrahepatic and extrahepatic bile ducts are nondilated. The spleen enhances homogenously without focal lesion. The pancreas and adrenal glands are normal. The kidneys enhance symmetrically. There is noevidence of renal calculus or hydronephrosis. The esophagus and stomach appear normal. The small bowel and large bowel are normal in caliber without evidence of wall thickening orobstruction. The appendix appears normal without appendicolith or surrounding inflammatory changes. No free air or free fluid is identified within the abdomen. There is no abdominal lymphadenopathy. The urinary bladder is distended with fluid and appears normal. Thecervix appears concentrically enlarged. There is a cystic structure in the central cervix which likely represents a nabothian cyst. There is a probable uterine fibroid in the lower uterine segment measuring 3.2 cm (series 4 image 108). No free fluid is seen within the pelvis. There isno pelvic lymphadenopathy. Bone windows demonstrate no suspicious lytic or blastic lesions. The visible osseous structures are intact. Anterior cervical spinal fusion hardware is partially imaged. IMPRESSION: 1. Multiple tree-in-bud and subsolid nodules throughout both lungs, greatest within the left lower lobe and bilateral upper lobes. Thislikely represents infection, including atypical infection, or aspiration. Recommend 3 month follow-up to assess for resolution. 2. Concentrically enlarged cervix may represent a normal variantfinding, though correlation with clinical exam is suggested. Uterine fibroid. Dictated by Quinton Swain MD (vice president lending). This report was approved by Quinton Swain on 11/26/2019 1:36 PM . I, Dr. MAGDALENA HANKS M.D. have personally reviewed and interpretedthis examination/study. This report was electronically signed by MAGDALENA HANKS M.D. on11/26/2019 2:02 PM . Khang Wheeler MD CT ORDERABLES * CT LUMBAR SPINE WO CONTRAST (11/26/2019 12:17 PM UI ARCHITECT) Anatomical Region Laterality Modality Spine Computed Tomogra phy 11/26/2019 12:4 8 PM UI ARCHITECT Impressions 11/26/2019 12:48 PM UI ARCHITECT IMPRESSION: 1.No evidence of acute fracture in the thoracic, or lumbar spine. 2.Please refer to dedicated body report for findings in the chest, abdomen, and pelvis. This report was electronically signed by CHELSEA RODRIGUEZ on 11/26/2019 12:48 PM . Narrative 11/26/2019 12:[address] THORACIC SPINE WO CONTRAST DATE: 11/26/2019 11:49 AM EXAMINATION: 1.CT of the thoracic spine without contrast. 2.CT of the thoracic spine without contrast HISTORY: R10.84: Abdominal pain, generalized TECHNIQUE: CT of the thoracic and lumbar spine was performed without contrast according to standard protocol. Reformatted axial, sagittal, and coronal images of the thoracic and lumbar spine were obtained by the technologist from a concurrently performed body CT and sent to the workstation for review. COMPARISON: No prior study is available for comparison at the time of this dictation. FINDINGS: Thoracic spine: Mild dextrocurvature of the thoracic spine. Vertebral bodies are normal in height without evidence of acute fracture. The intervertebral discs appear normal. No central canal stenosis is seen. There is mild facet osteoarthritis at multiple levels. No neural foraminal stenosis is seen. No soft tissue abnormality is identified. Partially imaged postoperative findings of anterior cervical fixation is noted. Scattered tree-in-bud opacities and nodular opacities in the bilateral lungs, indeterminate. Small nonspecific hilar lymph nodes. Lumbar spine: Straightening of the normal lumbar lordosis. Vertebral bodies are normal in height without evidence of acute fracture. There is mild degenerative disc disease. No central canal stenosis is seen. There is mild facet osteoarthritis at multiple levels, worst at L3-L4 on the right. There are varying degrees of neural foraminal stenosis at multiple levels. No soft tissue abnormality is identified. There are degenerative changes of the SI joints. Procedure Note Chelsea Rodriguez MD - 11/26/2019 CT THORACIC SPINE WO CONTRAST DATE: 11/26/2019 11:49 AM EXAMINATION: 1.CT of the thoracic spine without contrast. 2.CT of the thoracic spine without contrast HISTORY: R10.84: Abdominal pain, generalized TECHNIQUE: CT of the thoracic and lumbar spine was performed without contrast according to standard protocol. Reformatted axial, sagittal,and coronal images of the thoracic and lumbar spine were obtained by the technologist from a concurrently performed body CT and sent to the workstation for review. COMPARISON: No prior study is available for comparison at the time ofthis dictation. FINDINGS: Thoracic spine: Mild dextrocurvature of the thoracic spine. Vertebral bodies are normalin height without evidence of acute fracture. The intervertebral discsappear normal. No central canal stenosis is seen. There is mild facet osteoarthritis at multiple levels. No neural foraminal stenosis is seen. No soft tissue abnormality is identified. Partially imaged postoperative findings of anterior cervical fixation is noted. Scattered tree-in-bud opacities and nodular opacities in the bilateral lungs, indeterminate. Small nonspecific hilar lymph nodes. Lumbar spine: Straightening of the normal lumbar lordosis. Vertebral bodies are normal in height without evidence of acute fracture. There is mild degenerative disc disease. No central canal stenosis is seen. There is mild facet osteoarthritis at multiple levels, worst at L3-L4 on the right. Thereare varying degrees of neural foraminal stenosis at multiple levels. No soft tissue abnormality is identified. There are degenerative changes of theSI joints. IMPRESSION: 1.No evidence of acute fracture in the thoracic, or lumbar spine. 2.Please refer to dedicated body report for findings in the chest, abdomen, and pelvis. This report was electronically signed by CHELSEA RODRIGUEZ on11/26/2019 12:48 PM . Khang Wheeler MD CT ORDERABLES * CT THORACIC SPINE WO CONTRAST (11/26/2019 12:17 PM UI ARCHITECT) Anatomical Region Laterality Modality Spine Computed Tomogra phy 11/26/2019 12:3 0 PM UI ARCHITECT Addenda Addendum by Chelsea Rodriguez MD on 11/26/2019 12:52 PM UI ARCHITECT ORIGINAL REPORT CT THORACIC SPINE WO CONTRAST DATE: 11/26/2019 11:49 AM EXAMINATION: 1.CT of the thoracic spine without contrast. 2.CT of the thoracic spine without contrast HISTORY: R10.84: Abdominal pain, generalized TECHNIQUE: CT of the thoracic and lumbar spine was performed without contrast according to standard protocol. Reformatted axial, sagittal, and coronal images of the thoracic and lumbar spine were obtained by the technologist from a concurrently performed body CT and sent to the workstation for review. COMPARISON: No prior study is available for comparison at the time of this dictation. FINDINGS: Thoracic spine: Mild dextrocurvature of the thoracic spine. Vertebral bodies are normal in height without evidence of acute fracture. The intervertebral discs appear normal. No central canal stenosis is seen. There is mild facet osteoarthritis at multiple levels. No neural foraminal stenosis is seen. No soft tissue abnormality is identified. Partially imaged postoperative findings of anterior cervical fixation is noted. Scattered tree-in-bud opacities and nodular opacities in the bilateral lungs, indeterminate. Small nonspecific hilar lymph nodes. Lumbar spine: Straightening of the normal lumbar lordosis. Vertebral bodies are normal in height without evidence of acute fracture. There is mild degenerative disc disease. No central canal stenosis is seen. There is mild facet osteoarthritis at multiple levels, worst at L3-L4 on the right. There are varying degrees of neural foraminal stenosis at multiple levels. No soft tissue abnormality is identified. There are degenerative changes of the SI joints. IMPRESSION: 1.No evidence of acute fracture in the cervical, thoracic, or lumbar spine. 2.Please refer to dedicated body report for findings in the chest, abdomen, and pelvis. This report was electronically signed by CHELSEA RODRIGUEZ on 11/26/2019 12:38 PM . ADDENDUM #1 IMPRESSION SHOULD READ: 1.No evidence of acute fracture in the thoracic, or lumbar spine. 2.Please refer to dedicated body report for findings in the chest, abdomen, and pelvis. This report was electronically signed by CHELSEA RODRIGUEZ on 11/26/2019 12:49 PM . Impressions 11/26/2019 12:38 PM UI ARCHITECT IMPRESSION: 1.No evidence of acute fracture in the cervical, thoracic, or lumbar spine. 2.Please refer to dedicated body report for findings in the chest, abdomen, and pelvis. This report was electronically signed by CHELSEA RODRIGUEZ on 11/26/2019 12:38 PM . Narrative 11/26/2019 12:[address] THORACIC SPINE WO CONTRAST DATE: 11/26/2019 11:49 AM EXAMINATION: 1.CT of the thoracic spine without contrast. 2.CT of the thoracic spine without contrast HISTORY: R10.84: Abdominal pain, generalized TECHNIQUE: CT of the thoracic and lumbar spine was performed without contrast according to standard protocol. Reformatted axial, sagittal, and coronal images of the thoracic and lumbar spine were obtained by the technologist from a concurrently performed body CT and sent to the workstation for review. COMPARISON: No prior study is available for comparison at the time of this dictation. FINDINGS: Thoracic spine: Mild dextrocurvature of the thoracic spine. Vertebral bodies are normal in height without evidence of acute fracture. The intervertebral discs appear normal. No central canal stenosis is seen. There is mild facet osteoarthritis at multiple levels. No neural foraminal stenosis is seen. No soft tissue abnormality is identified. Partially imaged postoperative findings of anterior cervical fixation is noted. Scattered tree-in-bud opacities and nodular opacities in the bilateral lungs, indeterminate. Small nonspecific hilar lymph nodes. Lumbar spine: Straightening of the normal lumbar lordosis. Vertebral bodies are normal in height without evidence of acute fracture. There is mild degenerative disc disease. No central canal stenosis is seen. There is mild facet osteoarthritis at multiple levels, worst at L3-L4 on the right. There are varying degrees of neural foraminal stenosis at multiple levels. No soft tissue abnormality is identified. There are degenerative changes of the SI joints. Procedure Note Chelsea Rodriguez MD - 11/26/2019 CT THORACIC SPINE WO CONTRAST DATE: 11/26/2019 11:49 AM EXAMINATION: 1.CT of the thoracic spine without contrast. 2.CT of the thoracic spine without contrast HISTORY: R10.84: Abdominal pain, generalized TECHNIQUE: CT of the thoracic and lumbar spine was performed without contrast according to standard protocol. Reformatted axial, sagittal,and coronal images of the thoracic and lumbar spine were obtained by the technologist from a concurrently performed body CT and sent to the workstation for review. COMPARISON: No prior study is available for comparison at the time ofthis dictation. FINDINGS: Thoracic spine: Mild dextrocurvature of the thoracic spine. Vertebral bodies are normalin height without evidence of acute fracture. The intervertebral discsappear normal. No central canal stenosis is seen. There is mild facet osteoarthritis at multiple levels. No neural foraminal stenosis is seen. No soft tissue abnormality is identified. Partially imaged postoperative findings of anterior cervical fixation is noted. Scattered tree-in-bud opacities and nodular opacities in the bilateral lungs, indeterminate. Small nonspecific hilar lymph nodes. Lumbar spine: Straightening of the normal lumbar lordosis. Vertebral bodies are normal in height without evidence of acute fracture. There is mild degenerative disc disease. No central canal stenosis is seen. There is mild facet osteoarthritis at multiple levels, worst at L3-L4 on the right. Thereare varying degrees of neural foraminal stenosis at multiple levels. No soft tissue abnormality is identified. There are degenerative changes of theSI joints. IMPRESSION: 1.No evidence of acute fracture in the cervical, thoracic, or lumbarspine. 2.Please refer to dedicated body report for findings in the chest, abdomen, and pelvis. This report was electronically signed by CHELSEA RODRIGUEZ on11/26/2019 12:38 PM . Khang Wheeler MD CT ORDERABLES * EKG 12-LEAD (11/26/2019 11:46 AM UI ARCHITECT) Ventricular Rate 93 BPM [facility] MUSE Atrial Rate 93 BPM [facility] MUSE P-R Interval 176 ms [facility] MUSE QRS Duration ms 78 ms [facility]USE Q-T Interval ms 398 ms [facility] MUSE QTC Calculation (Bezet) 494 ms [facility] MUSE Calculated P [place] 68 degrees [facility] MUSE Calculated R [place] 73 degrees [facility] MUSE Calculated T [place] 64 degrees [facility] MUSE Interpretation EKG NORMAL SINUS RHYTHM PROLONGED QT ABNORMAL ECG NO PREVIOUS ECGS AVAILABLE Confirmed by Maureen Ken ([id number]), fashion editor RENAE FRIED ([id number]) on 12/08/2019 2:33:22 PM [facility] MUSE 11/26/2019 11:4 6 AM UI ARCHITECT 12/08/2019 2:33 PM UI ARCHITECT Khang Wheeler MD ECG ORDERABLES [facility] MUSE * PT-INR [facility] (11/26/2019 11:40 AM UI ARCHITECT) PT 13.2 12.1 - 14.8 Seconds 11/26/2019 11:56 AM [facility] INR 1.0 See Comment 11/26/2019 11:56 AM [facility] Comment: The suggested therapeutic range for standard coumadin (warfarin) therapy is an INR of 2.0-3.0. For high-risk patients (Mechanical Mitral Valve Prosthesis, etc.), the suggested prophylactic therapeutic range is an INR of 2.5-3.5. Blood BLOOD SPECIMEN / Unknown Venipuncture / Unknown 11/26/2019 11:40 AM UI ARCHITECT 11/26/2019 11:44 AM UI ARCHITECT Khang Wheeler MD LAB - COAGULATION OR DERABLES [address] [phone] * LACTIC ACID BLOOD (11/26/2019 11:40 AM UI ARCHITECT) [facility] Lactic Acid-Stat 1.0 0.5 - 2.0 mmol/L 11/26/2019 11:57 AM UI ARCHITECT [facility] Blood BLOOD SPECIMEN / Unknown Venipuncture / Unknown 11/26/2019 11:40 AM UI ARCHITECT 11/26/2019 11:44 AM UI ARCHITECT Khnag Wheeler MD LAB - CHEMISTRY [facility] Performing Organization Address City/[facility]/ZIP Co de Phone Number [address] [phone] * TROPONIN I (11/26/2019 10:41 AM UI ARCHITECT) [facility] Troponin I <0.010 <0.032 ng/mL 11/26/2019 12:06 PM UI ARCHITECT [facility] Blood BLOOD SPECIMEN / Unknown Venipuncture / Unknown 11/26/2019 10:41 AM UI ARCHITECT 11/26/2019 11:46 AM UI ARCHITECT Khang Wheeler MD LAB - CHEMISTRY [facility] [address] [phone] * (ABNORMAL) CBC W AUTO DIFFERENTIAL (11/26/2019 10:41 AM UI ARCHITECT) [facility] WBC 10.6(H) 3.5 - 10.5 10 3/uL 11/26/2019 10:56 AM [facility] RBC 5.64(H) 3.90 - 5.00 10 6/uL 11/26/2019 10:56 AM [facility] Hemoglobin 16.2(H) 12.0 - 15.5 g/dL 11/26/2019 10:56 AM [facility] Hematocrit 48.0(H) 35.0 - 45.0 % 11/26/2019 10:56 AM [facility] MCV 85.1 81.0 - 97.0 fL 11/26/2019 10:56 AM [facility] MCH 28.7 28.0 - 34.0 pg 11/26/2019 10:56 AM [facility] MCHC 33.8 32.0 - 36.0 g/dL 11/26/2019 10:56 AM [facility] Platelet Count 391 150 - 400 10 3/uL 11/26/2019 10:56 AM [facility] RDW-SD 38.3 36.0 - 50.0 fL 11/26/2019 10:56 AM [facility] RDW-CV 12.4 11.2 - 14.8 % 11/26/2019 10:56 AM [facility] MPV 9.1(L) 9.3 - 12.8 fL 11/26/2019 10:56 AM [facility] nRBC Absolute 0.00 0 10 3/uL 11/26/2019 10:56 AM [facility] nRBC Auto 0.0 0 /100 WBC 11/26/2019 10:56 AM [facility] Neutrophils % 68.5 35.0 - 70.0 % 11/26/2019 10:56 AM [facility] Lymphocytes % 24.2 19.7 - 55.1 % 11/26/2019 10:56 AM [facility] Monocytes % 5.5 3.0 - 15.0 % 11/26/2019 10:56 AM [facility] Eosinophils % 0.7 0.0 - 6.0 % 11/26/2019 10:56 AM [facility] Basophil % 0.5 0.0 - 1.5 % 11/26/2019 10:56 AM [facility] Neutrophils Absolute 7.3(H) 1.6 - 7.0 10 3/uL 11/26/2019 10:56 AM [facility] Lymphocyte Absolute 2.6 0.8 - 2.9 10 3/uL 11/26/2019 10:56 AM [facility] Monocytes Absolute 0.59 0.14 - 0.66 10 3/uL 11/26/2019 10:56 AM [facility] Eosinophils Absolute 0.07 0.00 - 0.45 10 3/uL 11/26/2019 10:56 AM [facility] Basophils Absolute 0.05 0.00 - 0.06 10 3/uL 11/26/2019 10:56 AM [facility] Immature Granulocytes % 0.6 0.0 - 1.0 % 11/26/2019 10:56 AM [facility] Blood BLOOD SPECIMEN / Unknown Venipuncture / Unknown 11/26/2019 10:41 AM UI ARCHITECT 11/26/2019 10:46 AM [facility] Tc Padron AMBULANCE OPERATIONS SUPERVISOR-SIZE PAINTER LAB - HEMATOLOGY ORDERABLES [facility] [address] [phone] * (ABNORMAL) COMPREHENSIVE METABOLIC PANEL (11/26/2019 10:41 AM [facility]) BUN 6(L) 7 - 26 mg/dL 11/26/2019 11:08 AM [facility] Creatinine 0.5(L) 0.6 - 1.2 mg/dL 11/26/2019 11:08 AM [facility] Sodium 137 136 - 145 mmol/L 11/26/2019 11:08 AM [facility] Potassium 4.1 3.5 - 4.5 mmol/L 11/26/2019 11:08 AM [facility] Chloride 101 98 - 107 mmol/L 11/26/2019 11:08 AM [facility] CO2 27 22 - 29 mmol/L 11/26/2019 11:08 AM [facility] Glucose 147(H) 70 - 115 mg/dL 11/26/2019 11:08 AM [facility] Calcium 9.7 8.4 - 10.2 mg/dL 11/26/2019 11:08 AM [facility] Protein Total 7.3 6.0 - 8.3 g/dL 11/26/2019 11:08 AM [facility] Albumin 3.6 3.4 - 5.0 g/dL 11/26/2019 11:08 AM [facility] Bilirubin Total 0.3 0.2 - 1.2 mg/dL 11/26/2019 11:08 AM [facility] Alkaline Phosphatase 85 40 - 150 Units/L 11/26/2019 11:08 AM [facility] ALT 19 0 - 55 Units/L 11/26/2019 11:08 AM [facility] AST 14 5 - 34 Units/L 11/26/2019 11:08 AM [facility] Anion Gap 13 8 - 18 11/26/2019 11:08 AM [facility] BUN/Creatinine Ratio 12 7 - 23 11/26/2019 11:08 AM [facility] Osmolality Calculated 284 270 - 300 mOsm/kg 11/26/2019 11:08 AM [facility] Albumin/Globulin Ratio 1.0(L) 1.1 - 2.3 11/26/2019 11:08 AM [facility] eGFR >60 >60 mL/min/1.7 3 m2 11/26/2019 11:08 AM [facility] Blood BLOOD SPECIMEN / Unknown Venipuncture / Unknown 11/26/2019 10:41 AM UI ARCHITECT 11/26/2019 10:46 AM UI ARCHITECT Tc BRIONES LAB - CHEMISTRY ORDERABLES Performing Organization Address [facility]/ZIP Co de Phone Number [address] [phone] * HCG BETA BLOOD QUANTITATIVE (11/26/2019 10:41 AM [facility]) [facility] Beta-hCG Total Quantitative <2 <5 mIU/mL 11/26/2019 12:21 PM [facility] Comment: This assay is cleared for use in the early detection of only. It is not approved for any other uses such as tumor marker screening, tumor marker monitoring, etc. and should not be used for any other purposes. HCG Numeric Result Interpretation: Non- Females: < 5 mIU/mL Post-Menopausal Females: < 7 mIU/mL Blood BLOOD SPECIMEN / Unknown Venipuncture / Unknown 11/26/2019 10:41 AM UI ARCHITECT 11/26/2019 10:46 AM UI ARCHITECT Khang Wheeler MD LAB - CHEMISTRY SUSAN BARONE Performing Organization Address City/[facility]/ZIP Co de Phone Number [address] [phone] * MAGNESIUM BLOOD (11/26/2019 10:41 AM UI ARCHITECT) Magnesium 1.6 1.6 - 2.6 mg/dL 11/26/2019 11:59 AM UI ARCHITECT [facility] Blood BLOOD SPECIMEN / Unknown Venipuncture / Unknown 11/26/2019 10:41 AM UI ARCHITECT 11/26/2019 10:46 AM UI ARCHITECT Khang Wheeler MD LAB - CHEMISTRY SUSAN BARONE [address] [phone] * LIPASE BLOOD (11/26/2019 10:41 AM UI ARCHITECT) Pathologist [facility] Lipase 17 8 - 78 Units/L 11/26/2019 11:08 AM UI ARCHITECT [facility] Blood BLOOD SPECIMEN / Unknown Venipuncture / Unknown 11/26/2019 10:41 AM UI ARCHITECT 11/26/2019 10:46 AM UI ARCHITECT Tc RIOSSIZE PAINTER LAB - CHEMISTRY ORDERABLES Performing Organization Address [facility]/ZIP Co de Phone Number [address] [phone] * TSH (11/26/2019 10:41 AM UI ARCHITECT) TSH 0.654 0.350 - 4.940 uIU/mL 11/26/2019 12:21 PM UI ARCHITECT [facility] Blood BLOOD SPECIMEN / Unknown Venipuncture / Unknown 11/26/2019 10:41 AM UI ARCHITECT 11/26/2019 10:46 AM UI ARCHITECT Khang Wheeler MD LAB - CHEMISTRY SUSAN BARONE Performing Organization Address City/[facility]/ZIP Co de Phone Number [address] [phone] * T4 FREE (11/26/2019 10:41 AM UI ARCHITECT) T4 Free 0.9 0.7 - 1.5 ng/dL 11/26/2019 1:39 PM [facility] Blood BLOOD SPECIMEN / Unknown Venipuncture / Unknown 11/26/2019 10:41 AM UI ARCHITECT 11/26/2019 10:46 AM UI ARCHITECT Khang Wheeler MD LAB - CHEMISTRY SUSAN Ray Organization Address City/State/ZIP Co de Phone Number [address] [phone] * (ABNORMAL) URINALYSIS W/MICROSCOPIC NO CULTURE (11/26/2019 10:40 AM UI ARCHITECT) Color UA Straw Straw, Yellow, Colorless 11/26/2019 10:59 AM [facility] Clarity UA Slt Cloudy Clear, Slt Cloudy 11/26/2019 10:59 AM [facility] Specific Hilliards UA 1.003(L) 1.005 - 1.030 11/26/2019 10:59 AM [facility] pH UA 6.0 5.0 - 8.0 pH 11/26/2019 10:59 AM [facility] Protein UA Negative Negative mg/dL 11/26/2019 10:59 AM [facility] Glucose UA Negative Negative mg/dL 11/26/2019 10:59 AM [facility] Ketone UA Negative Negative mg/dL 11/26/2019 10:59 AM [facility] Bilirubin UA Negative Negative mg/dL 11/26/2019 10:59 AM [facility] Blood UA 1+(A) Negative 11/26/2019 10:59 AM [facility] Nitrite UA Negative Negative 11/26/2019 10:59 AM [facility] Leukocyte Esterase Trace(A) Negative 11/26/2019 10:59 AM [facility] Urobilinogen UA Negative Negative mg/dL 11/26/2019 10:59 AM [facility] RBC UA 3-5 None Seen, 0-2, 3-5 /HPF 11/26/2019 10:59 AM [facility] WBC UA 0-5 None Seen, 0-5 /HPF 11/26/2019 10:59 AM [facility] Bacteria UA 1+(A) None, Trace /HPF 11/26/2019 10:59 AM UI ARCHITECT [facility] Squamous Epithelial Cells UA 3-5(A) None Seen, 0-2 /HPF 11/26/2019 10:59 AM UI ARCHITECT [facility] Urine URINE SPECIMEN OBTAINED BY CLEAN CATCH PROCEDURE / Unknown Collection / Unknown 11/26/2019 10:40 AM UI ARCHITECT 11/26/2019 10:46 AM UI ARCHITECT Narrative [facility] - 11/26/2019 10:59 AM UI ARCHITECT Tc Padron APRN-SIZE PAINTER LAB - URINALYSIS ORDERABLES [facility] [address] [place] [address], [facility] [phone] * HCG URINE QUALITATIVE - POINT OF CARE (11/26/2019 10:35 AM UI ARCHITECT) HCG Qual Urine Negative Negative [facility] P OCT TESTING QC Verified Yes Yes [facility] POCT TESTING Urine URINE / Unknown 11/26/2019 1 0:35 AM UI ARCHITECT Tc Padron APRN-SIZE PAINTER LAB - POINT OF C ARE ORDERABLES [facility] POCT TESTING [address] [place] [address] Care Teams Director Of Perioperative Services Relationship Specialty Start Date End Date Raudel Stinson MD [address] [place] [address] PCP - General Internal Medicine 11/26/19
--- OUTSIDE RECORDS SUMMARY | 2025-01-01 13:24 | XMS_ITS | Clinical Summary ---
Author Organization [facility] Address [facility] [place] [address] Care Team Providers Care Supervisor Agency Appointments Name Role Phone Raudel Stinson MD Primary Care Provider [phone] Allergies Active Allergy Reactions Criticality Noted Date Comments Sulfa Antibiotics Hives,Unknown 11/12/2019 Medications hydrocodone-carrillo taminophen 5-325 MG tabletIndicatio ns:Acute Pain < 7 Day Supply Take 1 tablet by mouth every 6 (six) hours as needed for Pain. Indications: Acute Pain < 7 Day Supply 15 tablet 11/12/2019 Active PROAIR HFA 108 (90 Base) MCG/ACT inhaler Inhale 2 puffs into the lungs every 4 (four) hours as needed. 09/04/2019 Active citalopram 40 MG tablet Take 40 mg by mouth. 11/27/2019 Active TRULICITY 1.5 MG/0.5ML Solution Pen-injector 11/27/2019 Active fluconazole 150 MG tablet 11/04/2019 Active ONETOUCH VERIO test strip 03/09/2019 Active ONETOUCH DELICA LANCETS 33G Misc 03/09/2019 Active lisinopril 20 MG tablet Take 20 mg by mouth daily. 11/27/2019 Active CLEAR-ATADINE 10 MG tablet Take 10 mg by mouth. 10/10/2019 Active metFORMIN ER 500 MG 24 hr tablet Take 1,500 mg by mouth. 10/29/2019 Active simvastatin 10 MG tablet Take 10 mg by mouth. 11/27/2019 Active JANUVIA 50 MG tablet Take 50 mg by mouth. 11/10/2019 Active doxycycline hyclate 100 MG capsule Take 100 mg by mouth 2 (two) times daily. Active acetaminophen-c odeine 300-30 MG tablet Take 2 tablets by mouth every 6 (six) hours as needed. Active Active Problems Problem Noted Date Diagnosed Date Left upper quadrant abdominal pain 04/10/2021 Overview (04/10/2021): Added automatically from request for surgery [id number] Early satiety 04/10/2021 Overview (04/10/2021): Added automatically from request for surgery [id number] Abdominal distention 04/10/2021 Overview (04/10/2021): Added automatically from request for surgery [id number] Immunizations Name Administration Dates Next Due Tdap (Generic) 01/29/2017 Social History Tobacco Use Types Packs/Day Years Used Date Smoking Tobacco: Every Day Cigarettes Smokeless Tobacco: Never Tobacco Cessation:Ready to Q uit: No; Counseling Given: No Comments:pcp to cosmetic counselor Alcohol Use Standard Drinks/Week Comments Yes 0 (1 standard drink = 0.6 oz pur e alcohol) occ Comments No Sex and Gender Information Value Date Recorded Sex Assigned at Not on file Legal Sex Female 5:52 PM [employer] Gender Identity Not on file Sexual Orientation Not on file Last Filed Vital Signs Vital Sign Reading Time Taken Comments Blood Pressure 141/84 04/19/2021 1:45 PM CDT Pulse 113 04/19/2021 1:06 PM CDT Temperature 35.9 C (96.6 F) 04/19/2021 11:33 AM CDT Respiratory Rate 18 04/19/2021 1:45 PM CDT Oxygen Saturation 96% 04/19/2021 1:45 PM CDT Inhaled Oxygen Concentration - - Weight 89.8 kg (198 lb) 04/07/2021 3:35 PM CDT Height 167.6 cm (5' 6 ) 04/07/2021 3:35 PM CDT Body Mass Index 31.96 04/07/2021 3:35 PM CDT Plan of Treatment Health Maintenance Due Date Last Done Comments Cervical Cancer Screening Pa p Smear (Age 30 to 64) Every 3 Years 1975 Annual Physical 1978 Pneumococcal Vaccine: Pediat rics (0 to 5 Years) and At-Risk Patients (6 to 64 Years) (1 of 2 - PCV) 1981 Hepatitis C 1993 Hepatitis B Vaccines (1 of 3 - 19+ 3-dose series) 1994 Cervical Cancer Screening Pa p with HPV Testing (Age 30 to 64) Every 5 Years 2005 Cervical Cancer Screening with HPV 2005 Mammogram Screening 2015 COVID-19 Vaccine (1 - 2023-2 5 season) 2024 Influenza Adult (#1) 2024 DTaP, Tdap and Td Vaccines ( 2 - Td or Tdap) 01/29/2027 01/29/2017 Colorectal Cancer Screening Colonoscopy (10 Years) 04/19/2031 04/19/2021 Meningococcal B Vaccine Aged Out No l onger eligible based on patient's age to complete this topic Meningococcal Vaccine Aged Out No juve rita eligible based on patient's age to complete this topic RSV Immunizations Under 20 Months Aged Out No longer eligible based on patient's age to complete this topic Insurance Care Teams Supervisor Agency Appointments Relationship Specialty Start Date End Date Raudel Stinson MD [address] [place] [address] [phone] PCP - General INTERNAL MEDICINE 11/12/19
--- OUTSIDE RECORDS SUMMARY | 2025-01-01 13:24 | XMS_ITS | Clinical Summary ---
Author Organization [facility] Address [address] [facility] [place] [address] Care Team Providers Care Hospitality Specialist Name Role Phone Raudel Stinson MD Primary Care Provider [phone] Source Comments [facility],non-owned Affiliates and Associated Physician Practices is amultiple site organization consisting of ambulatory clinics and hospital sitesin [place], [place], [place] and [place]. This disclosure is being madepursuant to the Care Everywhere program and may not contain all information available regarding this patient. Last updated 18.[facility] Allergies Active Allergy Reactions Criticality Noted Date Comments Sulfa Drugs Unknown 11/26/2019 Medications * Be aware that medications may not be up to date on this document. Alwaysverify current medications with the patient. Medication Sig Dispensed Refills Start Date End Date Status metFORMIN (GLUCOPHAGE) 500 MG tablet Take 2,000 mg by mouth once daily Active citalopram (CELEXA) 40 MG tablet Take 40 mg by mouth once daily Active lisinopril (PRINIVIL; ZESTRIL) 10 MG tablet Take 10 mg by mouth once daily Active simvastatin (ZOCOR) 10 MG tablet Take 10 mg by mouth at bedtime Active doxycycline hyclate (VIBRAMYCIN) 100 MG capsule Take 100 mg by mouth every 12 hours Active acetaminophen-codeine (TYLENOL #3) 300-30 MG tablet Take 2 tablets by mouth every 6 hours as needed for Pain Active Social History Tobacco Use Types Packs/Day Years [...] Comments Blood Pressure 150/84 11/26/2019 2:39 PM [employer] Pulse 75 11/26/2019 2:39 PM [employer] Temperature 36.3 C (97.3 F) 11/26/2019 10:02 AM [employer] Respiratory Rate 16 11/26/2019 2:39 PM [employer] Oxygen Saturation 98% 11/26/2019 2:39 PM [employer] Inhaled Oxygen Concentration - - Weight 90.7 kg (200 lb) 11/26/2019 10:02 AM [employer] Height 170.2 cm (5' 7 ) 11/26/2019 10:02 AM [employer] Body Mass Index 31.32 11/26/2019 10:02 AM [employer] Plan of Treatment Health Maintenance Due Date Last Done Comments COLOGUARD (AGES 45-75) - COL ON CA SCREENING 1975 COLON MONITORING 1975 COLONOSCOPY - COLON CA SCREENING 1975 CT COLONOGRAPHY - COLON CA SCREENING 1975 Colorectal Cancer Screening 1975 FIT - COLON CA SCREENING 1975 FLEX SIG - COLON CA SCREENING 1975 MAMMOGRAM 1975 PAP SMEAR 1975 HIV SCREENING 1990 HEPATITIS C SCREENING 02/22/1993 DTAP/TDAP/TD VACCINES (1 - Tdap) 1994 HEPATITIS B VACCINE (1 of 3 - 19+ 3-dose series) 1994 PNEUMOCOCCAL VACCINE (1 of 2 - PCV) 1994 COVID-19 VACCINE (1 - 2023-2 5 season) 2024 INFLUENZA VACCINE (#1) 2024 DEPRESSION SCREENING 11/25/2024 ZOSTER VACCINE (1 of 2) 2025 HIB VACCINE Aged Out No longer eligi ble based on patient's age to complete this topic HPV VACCINE Aged Out No longer eligi ble based on patient's age to complete this topic MENINGOCOCCAL (Group B) VACCINE Aged Out No longer eligible based on patient's age to complete this topic MENINGOCOCCAL VACCINE Aged Out No juve rita eligible based on patient's age to complete this topic Care Teams Hospitality Specialist Relationship Specialty Start Date End Date Raudel Stinson MD [address] [place] [address] [address] [place] [address] PCP - General Internal Medicine 11/26/19
--- OUTSIDE RECORDS SUMMARY | 2025-01-01 13:24 | XMS_ITS | Clinical Summary ---
[facility] Address [address] [place] [address] Care Team Providers Care Recycle Coordinator Name Role Phone AriesKonstantin murphy Jan Primary Care Provider Allergies Active Allergy Reactions Criticality Noted Date Comments Codeine Nausea and Vomiting Low 05/01/2024 Sulfa (Sulfonamide Antibiotics) Hives High 10/25 Medications citalopram (CeleXA) 40 mg tablet Take 40 mg by mouth daily. Active lisinopriL (PRINIVIL) 20 mg tablet Take 1 Tablet by mouth daily. 4 Active metFORMIN (GLUCOPHAGE) 500 mg tablet Take 2,000 mg by mouth daily. Active pregabalin (LYRICA) 75 mg Capsule Take 1 Capsule by mouth 2 times daily. 4 Active rosuvastatin (CRESTOR) 5 mg tablet Take 1 Tablet by mouth daily. 4 Active Trulicity 1.5 mg/0.5 mL injection 4 Active HYDROcodone-carrillo taminophen (NORCO) 10-325 mg Tablet take 1 tablet by mouth every 12 hours as needed for pain 4 Active Breztri Aerosphere 160 mcg-9mcg-4.8mcg /actuation HFA aerosol inhaler Take by inhalation. Active albuterol sulfate HFA 90 mcg/actuation aerosol inhaler Take 2 Puffs by inhalation every 6 hours as needed for Shortness of Breath. Active Active Problems No known active problems Encounters Date Type Department Care Team Description 12/16/2024 External Device Data ST[facility] ABSTRACTION Provider, Abstract 12/15/2024 External Device Data [facility] ABSTRACTION Provider, Abstract 12/09/2024 External Device Data [facility] ABSTRACTION Provider, Abstract from Last 3 Months Family History Medical History Relation Name Comments Diabetes Mother Heart Disease Mother Relation Name Status Comments Brother 1 Alive Brother 2 Daughter Alive Father Alive Mother Alive Sister Son Alive Social History Tobacco Use Types Packs/Day Years Used Date Smoking Tobacco: Every Day Cigarettes 1.5 32.1 Started: 1992 Smokeless Tobacco: Never Tobacco Cessation:Ready to Q uit: Not Asked; Counseling Given: Not Answered Alcohol Use Standard Drinks/Week Comments Yes 0 (1 standard drink = 0.6 oz pur e alcohol) occasionaly Comments Unknown Sex and Gender Information Value Date Recorded Sex Assigned at Not on file Legal Sex Female 2:26 PM CDT Gender Identity Not on file Sexual Orientation Not on file Last Filed Vital Signs Vital Sign Reading Time Taken Comments Blood Pressure 146/84 05/01/2024 10:36 AM CDT Pulse 82 05/01/2024 10:36 AM CDT Temperature 36.1 C (96.9 F) 05/01/2024 10:36 AM CDT Respiratory Rate 14 05/01/2024 10:36 AM CDT Oxygen Saturation 95% 05/01/2024 10:36 AM CDT Inhaled Oxygen Concentration - - Weight 87.1 kg (192 lb) 05/01/2024 10:36 AM CDT Height 170.2 cm (5' 7 ) 05/01/2024 10:36 AM CDT Body Mass Index 30.07 05/01/2024 10:36 AM CDT Plan of Treatment Health Maintenance Due Date Last Done Comments Pre-Diabetes and Diabetes Screening 1975 HEPATITIS B VACCINES (1 of 3 - 19+ 3-dose series) 03/1994 CERVICAL CANCER SCREENING 2005 BREAST CANCER SCREENING 2015 FIT-DNA Q 3 years 02/28/2020 FIT/FOBT Q 1 year 02/28/2020 Flex Sig/CT Colonography Q 5 years 02/28/2020 INFLUENZA VACCINE (#1) 2024 DTAP/TDAP/TD VACCINES (2 - Td or Tdap) 01/29/2027 COLORECTAL SCREENING 04/19/2031 04/19/2021 Colorectal Cancer Screening 04/19/2031 Insurance [facility] [employer] [id number] Care Teams Recycle Coordinator Relationship Specialty Start Date End Date Konstantin Hoover DO [address] [facility] [address] [place] [address] PCP - General Internal Medicine 04/15/24
--- OUTSIDE RECORDS SUMMARY | 2025-01-01 13:24 | XMS_ITS | Referral Summary ---
Author Organization [facility] [employer] Address [address] [place] [address] Care Team Providers Care Collar Setter Overlock Name Role Phone Raudel Stinson MD Primary Care Provider [phone] Source Comments [facility] [employer],non-owned Affiliates and Associated Physician Practices is amultiple site organization consisting of ambulatory clinics and hospital sitesin [place], [place], [place] and [place]. This disclosure is being madepursuant to the Care Everywhere program and may not contain all information available regarding this patient. Last updated 18.[facility] [employer] Allergies Active Allergy Reactions Criticality Noted Date [...] Comments Blood Pressure 150/84 11/26/2019 2:39 PM ADOLESCENT COORDINATOR Pulse 75 11/26/2019 2:39 PM ADOLESCENT COORDINATOR Temperature 36.3 C (97.3 F) 11/26/2019 10:02 AM ADOLESCENT COORDINATOR Respiratory Rate 16 11/26/2019 2:39 PM ADOLESCENT COORDINATOR Oxygen Saturation 98% 11/26/2019 2:39 PM ADOLESCENT COORDINATOR Inhaled Oxygen Concentration - - Weight 90.7 kg (200 lb) 11/26/2019 10:02 AM ADOLESCENT COORDINATOR Height 170.2 cm (5' 7 ) 11/26/2019 10:02 AM ADOLESCENT COORDINATOR Body Mass Index 31.32 11/26/2019 10:02 AM ADOLESCENT COORDINATOR Plan of Treatment Not on file Care Teams Collar Setter Overlock Relationship Specialty Start Date End Date Raudel Stinson MD [facility] [place] [address] [place] [address] PCP - General Internal Medicine 11/26/19
== END 2025-01-01 13:21 | disposition home or self-care (01) ==
PROVIDERS: PCP Family Medicine; Visit Provider Obstetrics & Gynecology
DX: N63.22 Unspecified lump in the left breast, upper inner quadrant (principal)
CPT/HCPCS: 76642; 77062; 77066; G0279

== ENCOUNTER 2025-01-16 11:40 | Emergency (ER) | payer OTHER, SELFPAY ==
--- OUTSIDE RECORDS SUMMARY | 2025-01-16 11:43 | XMS_ITS | Clinical Summary ---
Author Organization [facility] [employer] Address [address] [facility] [place] [address] Care Team Providers Care Employee Wellness/Fitness Coordinator Name Role Phone Raudel Stinson MD Primary Care Provider [phone] Source Comments [facility] [employer],non-owned Affiliates and Associated Physician Practices is amultiple site organization consisting of ambulatory clinics and hospital sitesin [place], [place], [place] and [place]. This disclosure is being madepursuant to the Care Everywhere program and may not contain all information available regarding this patient. Last updated 18.[facility] [employer] Allergies Active Allergy Reactions Criticality Noted Date [...] Comments Blood Pressure 150/84 11/26/2019 2:39 PM BRAND RECORDER Pulse 75 11/26/2019 2:39 PM BRAND RECORDER Temperature 36.3 C (97.3 F) 11/26/2019 10:02 AM BRAND RECORDER Respiratory Rate 16 11/26/2019 2:39 PM BRAND RECORDER Oxygen Saturation 98% 11/26/2019 2:39 PM BRAND RECORDER Inhaled Oxygen Concentration - - Weight 90.7 kg (200 lb) 11/26/2019 10:02 AM BRAND RECORDER Height 170.2 cm (5' 7 ) 11/26/2019 10:02 AM BRAND RECORDER Body Mass Index 31.32 11/26/2019 10:02 AM BRAND RECORDER Plan of Treatment Health Maintenance Due Date [...] age to complete this topic Care Teams Employee Wellness/Fitness Coordinator Relationship Specialty Start Date End Date Raudel Stinson MD [address] [place] [address] [address] [place] [address] PCP - General Internal Medicine 11/26/19
--- OUTSIDE RECORDS SUMMARY | 2025-01-16 11:43 | XMS_ITS | Encounter Summary ---
Author Organization [facility] Address [address] [place] [address] Care Team Providers Care Escrow Manager Name Role Phone Raudel Stinson MD Primary Care Provider [phone] Encounter Details Date Type Department Care Team (Late st Contact Info) Description 05/02/2019 Abstract SFL CONVERSION [address] [place] [address] , Generic Conversion, Social History Tobacco Use Types Packs/Day Years Used Date Smoking Tobacco: Never Assessed Comments Unknown Sex and Gender Information Value Date Recorded Sex Assigned at Not on file Legal Sex Female 5:52 PM SOUND ASSISTANT Gender Identity Not on file Sexual Orientation Not on file documented as of this encounter Plan of Treatment Not on file documented as of this encounter Visit Diagnoses Not on filedocumented in this encounter Additional Health Concerns Infection Onset Date Last Indicated Resolved Time COVID-19 Rule Out 04/17/2021 04/17/2021 04/19/2021 1:10 PM CDT documented as of this encounter Care Teams Escrow Manager Relationship Specialty Start Date End Date Raudel Stinson MD [address] [place] [address] PCP - General INTERNAL MEDICINE 11/12/19 documented as of this encounter
--- OUTSIDE RECORDS SUMMARY | 2025-01-16 11:43 | XMS_ITS | Clinical Summary ---
[facility] Organization [facility] Address [address] [place] [address] Care Team Providers Care Structural Engineering Drafting Officer Name Role Phone AriesKonstantin murphy Jan Primary [...] Encounters Date Type Department Care Team Description 01/12/2025 External Device Data [facility] ABSTRACTION Provider, Abstract 12/16/2024 External Device Data [facility] ABSTRACTION Provider, [...] 04/19/2031 04/19/2021 Colorectal Cancer Screening 04/19/2031 Insurance [facility] [id number] Care Teams Structural Engineering Drafting Officer Relationship Specialty Start Date End Date Konstantin Hoover DO [address] [facility] [place] [address] PCP - General Internal Medicine 04/15/24
--- OUTSIDE RECORDS SUMMARY | 2025-01-16 11:43 | XMS_ITS | Clinical Summary ---
Author Organization [facility] Address [facility] [place] [address] Care Team Providers Care Aircraft Part Assembler Name Role Phone Raudel Stinson MD Primary Care Provider [phone] Allergies Active Allergy Reactions Criticality Noted Date [...] (04/10/2021): Added automatically from request for surgery [id number] Early satiety 04/10/2021 Overview (04/10/2021): Added automatically from request for surgery [id number] Abdominal distention 04/10/2021 Overview (04/10/2021): Added automatically from request for surgery [id number] Immunizations Name Administration Dates Next Due Tdap (Generic) 01/29/2017 Social History Tobacco Use Types Packs/Day Years Used Date Smoking Tobacco: Every Day Cigarettes Smokeless Tobacco: Never Tobacco Cessation:Ready to Q uit: No; Counseling Given: No Comments:pcp to camp counselor Alcohol Use Standard Drinks/Week Comments Yes 0 (1 standard drink = 0.6 oz pur e alcohol) occ Comments No Sex and Gender Information Value Date Recorded Sex Assigned at Not on file 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
--- OUTSIDE RECORDS SUMMARY | 2025-01-16 11:43 | XMS_ITS | Referral Summary ---
Author Organization [facility] Address [address] [facility] [place] [address] Care Team Providers Care Trampoline Team Coach Name Role Phone Raudel Stinson MD Primary Care Provider [phone] Source Comments [facility],non-owned Affiliates and Associated Physician Practices is amultiple site organization consisting of ambulatory clinics and hospital sitesin [place], [place], [place]. This disclosure is being madepursuant to the Care Everywhere program and may not contain all information available regarding this patient. Last updated 18.[facility] Allergies Active Allergy Reactions Criticality Noted Date [...] Comments Blood Pressure 150/84 11/26/2019 2:39 PM AUT[employer] DEALERSHIP PORTER Pulse 75 11/26/2019 2:39 PM AUT[employer] DEALERSHIP PORTER Temperature 36.3 C (97.3 F) 11/26/2019 10:02 AM AUT[employer] DEALERSHIP PORTER Respiratory Rate 16 11/26/2019 2:39 PM [employer] DEALERSHIP PORTER Oxygen Saturation 98% 11/26/2019 2:39 PM [employer] DEALERSHIP PORTER Inhaled Oxygen Concentration - - Weight 90.7 kg (200 lb) 11/26/2019 10:02 AM [employer]ER[employer]IP PORTER Height 170.2 cm (5' 7 ) 11/26/2019 10:02 AM [employer]ERSH[employer] PORTER Body Mass Index 31.32 11/26/2019 10:02 AM [employer]ERSHIP PORTER Plan of Treatment Not on file Care Teams Trampoline Team Coach Relationship Specialty Start Date End Date Raudel Stinson MD [facility] [place] [address] [place] [phone] PCP - General Internal Medicine 11/26/19
--- OUTSIDE RECORDS SUMMARY | 2025-01-16 11:43 | XMS_ITS | Encounter Summary ---
Author Organization [facility] Address [address] [place] [address] Care Team Providers Care Spool Cleaner Name Role Phone Raudel Stinson MD Primary Care Provider Encounter Details Date Type Department Care Team (Late st Contact Info) Description 04/10/2021 Prep for Procedure [facility] [address] [place] [address] Dilan Pearce MD [address] [place] [address] Social History Tobacco Use Types Packs/Day Years Used Date Smoking Tobacco: Every Day Cigarettes Smokeless Tobacco: Never Comments:pcp to counseling services director Alcohol Use Standard Drinks/Week Comments Yes 0 (1 standard drink = 0.6 oz pur e alcohol) occ Comments No Sex and Gender Information Value Date Recorded Sex Assigned at Not on file 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
--- OUTSIDE RECORDS SUMMARY | 2025-01-16 11:43 | XMS_ITS | Patient Health Summary ---
Author Organization [facility] Address [address] [facility] [place] [address] Care Team Providers Care Contact Agent Name Role Phone Raudel Stinson MD Primary Care Provider [phone] [facility],non-owned Affiliates and Associated Physician Practices is amultiple site organization consisting of ambulatory clinics and hospital sitesin [place], [place], [place] and [place]. This disclosure is being madepursuant to the Care Everywhere program and may not contain all information available regarding this patient. Last updated 18.[facility] Allergies * Sulfa Drugs(Unknown) Medications * Be [...] Comments Blood Pressure 150/84 11/26/2019 2:39 PM PADDING MACHINE OPERATOR Pulse 75 11/26/2019 2:39 PM PADDING MACHINE OPERATOR Temperature 36.3 C (97.3 F) 11/26/2019 10:02 AM PADDING MACHINE OPERATOR Respiratory Rate 16 11/26/2019 2:39 PM PADDING MACHINE OPERATOR Oxygen Saturation 98% 11/26/2019 2:39 PM PADDING MACHINE OPERATOR Inhaled Oxygen Concentration - - Weight 90.7 kg (200 lb) 11/26/2019 10:02 AM PADDING MACHINE OPERATOR Height 170.2 cm (5' 7 ) 11/26/2019 10:02 AM PADDING MACHINE OPERATOR Body Mass Index 31.32 11/26/2019 10:02 AM PADDING MACHINE OPERATOR Procedures * CARDIAC EKG ORDER(Performed 12/14/2019) * [...] * CARDIAC EKG ORDER (12/14/2019 10:20 AM PADDING MACHINE OPERATOR) Only the most recent of2 resultswithin the time period is included. Narrative 12/14/2019 10:20 AM PADDING MACHINE OPERATOR Ordered by an unspecified provider. Scanned Document CARDIAC SERVICES ORD ERABLES * CT CHEST ABDOMEN PELVIS W CONT (11/26/2019 12:17 PM PADDING MACHINE OPERATOR) Anatomical Region Laterality Modality Chest, Abdomen, Pelvis Computed Tomography 11/26/2019 1:07 PM PADDING MACHINE OPERATOR Impressions 11/26/2019 2:02 PM PADDING MACHINE OPERATOR IMPRESSION: 1. Multiple tree-in-bud and subsolid nodules throughout both lungs, greatest within the left lower lobe and bilateral upper lobes. This likely represents infection, including atypical infection, or aspiration. Recommend 3 month follow-up to assess for resolution. 2. Concentrically enlarged cervix may represent a normal variant finding, though correlation with clinical exam is suggested. Uterine fibroid. Dictated by Quinton Swain MD (resident in diagnostic radiology). This report was approved by Quinton Swain on 11/26/2019 1:36 PM . I, Dr. MAGDALENA HANKS M.D. have personally reviewed and interpreted this examination/study. This report was electronically signed by MAGDALENA HANKS M.D. on 11/26/2019 2:02 PM . Narrative 11/26/2019 2:02 PM PADDING MACHINE OPERATOR EXAMINATION: Computed tomography (CT) of the chest, [...] are clear of focal consolidation. There are hswrpulyliev-[id number]-[id number] nodules within both lungs, greatest within the [...] Uterine fibroid. Dictated by Quinton Swain MD (resident in diagnostic radiology). This report was approved by Quinton Swain on 11/26/2019 1:36 PM . I, Dr. MAGDALENA HANKS M.D. have personally reviewed and interpretedthis examination/study. This report was electronically signed by MAGDALENA HANKS M.D. on11/26/2019 2:02 PM . Khang Wheeler MD CT ORDERABLES * CT LUMBAR SPINE WO CONTRAST (11/26/2019 12:17 PM PADDING MACHINE OPERATOR) Anatomical Region Laterality Modality Spine Computed Tomogra phy 11/26/2019 12:4 8 PM PADDING MACHINE OPERATOR Impressions 11/26/2019 12:48 PM PADDING MACHINE OPERATOR IMPRESSION: 1.No evidence of acute fracture in the thoracic, or lumbar spine. 2.Please refer to dedicated body report for findings in the chest, abdomen, and pelvis. This report was electronically signed by CHELSEA RODRIGUEZ on 11/26/2019 12:48 PM . Narrative 11/26/2019 12:48 PM PADDING MACHINE OPERATOR CT THORACIC SPINE WO CONTRAST DATE: 11/26/2019 [...] THORACIC SPINE WO CONTRAST (11/26/2019 12:17 PM PADDING MACHINE OPERATOR) Anatomical Region Laterality Modality Spine Computed Tomogra phy 11/26/2019 12:3 0 PM PADDING MACHINE OPERATOR Addenda Addendum by Chelsea Rodriguez MD on 11/26/2019 12:52 PM PADDING MACHINE OPERATOR ORIGINAL REPORT CT THORACIC SPINE WO CONTRAST [...] 12:49 PM . Impressions 11/26/2019 12:38 PM PADDING MACHINE OPERATOR IMPRESSION: 1.No evidence of acute fracture in the cervical, thoracic, or lumbar spine. 2.Please refer to dedicated body report for findings in the chest, abdomen, and pelvis. This report was electronically signed by CHELSEA RODRIGUEZ on 11/26/2019 12:38 PM . Narrative 11/26/2019 12:38 PM PADDING MACHINE OPERATOR CT THORACIC SPINE WO CONTRAST DATE: 11/26/2019 [...] ORDERABLES * EKG 12-LEAD (11/26/2019 11:46 AM PADDING MACHINE OPERATOR) Ventricular Rate 93 BPM [facility] MUSE Atrial Rate 93 BPM [facility] MUSE P-R Interval 176 ms [facility] M[facility] QRS Duration ms 78 ms [facility] Q-T Interval ms 398 ms [facility] MUSE QTC Calculation (Bezet) 494 ms [facility] MUSE Calculated P [place] 68 degrees [facility] MUSE Calculated R [place] 73 degrees [facility] MUSE Calculated T [place] 64 degrees [facility] MUSE Interpretation EKG NORMAL SINUS RHYTHM PROLONGED QT ABNORMAL ECG NO PREVIOUS ECGS AVAILABLE Confirmed by Maureen Ken ([id number]), editor city RENAE FRIED ([id number]) on 12/08/2019 2:33:22 PM [facility] MUSE 11/26/2019 11:4 6 AM PADDING MACHINE OPERATOR 12/08/2019 2:33 PM PADDING MACHINE OPERATOR Khang Wheeler MD ECG ORDERABLES [facility] MUSE * PT-INR [facility] (11/26/2019 11:40 AM PADDING MACHINE OPERATOR) PT 13.2 12.1 - 14.8 Seconds 11/26/2019 11:56 AM [facility] INR 1.0 See Comment 11/26/2019 11:56 AM [facility] Comment: The suggested therapeutic range for standard coumadin (warfarin) therapy is an INR of 2.0-3.0. For high-risk patients (Mechanical Mitral Valve Prosthesis, etc.), the suggested prophylactic therapeutic range is an INR of 2.5-3.5. Blood BLOOD SPECIMEN / Unknown Venipuncture / Unknown 11/26/2019 11:40 AM PADDING MACHINE OPERATOR 11/26/2019 11:44 AM PADDING MACHINE OPERATOR Khang Wheeler MD LAB - COAGULATION OR DERABLES [address] [phone] * LACTIC ACID BLOOD (11/26/2019 11:40 AM PADDING MACHINE OPERATOR) [facility] Lactic Acid-Stat 1.0 0.5 - 2.0 mmol/L 11/26/2019 11:57 AM PADDING MACHINE OPERATOR [facility] Blood BLOOD SPECIMEN / Unknown Venipuncture / Unknown 11/26/2019 11:40 AM PADDING MACHINE OPERATOR 11/26/2019 11:44 AM PADDING MACHINE OPERATOR Khang Wheeler MD LAB - CHEMISTRY SUSAN BARONE Performing Organization Address City/[facility]/ZIP Co de Phone Number [address] [phone] * TROPONIN I (11/26/2019 10:41 AM PADDING MACHINE OPERATOR) [facility] Troponin I <0.010 <0.032 ng/mL 11/26/2019 12:06 PM PADDING MACHINE OPERATOR [facility] Blood BLOOD SPECIMEN / Unknown Venipuncture / Unknown 11/26/2019 10:41 AM PADDING MACHINE OPERATOR 11/26/2019 11:46 AM PADDING MACHINE OPERATOR Khang Wheeler MD LAB - CHEMISTRY SUSAN BARONE [address] [phone] * (ABNORMAL) CBC W AUTO DIFFERENTIAL (11/26/2019 10:41 AM PADDING MACHINE OPERATOR) [facility] WBC 10.6(H) 3.5 - 10.5 10 3/uL 11/26/2019 10:56 AM [facility] RBC 5.64(H) 3.90 - 5.00 10 6/uL 11/26/2019 10:56 AM [facility] Hemoglobin 16.2(H) 12.0 - 15.5 g/dL 11/26/2019 10:56 AM [facility] Hematocrit 48.0(H) 35.0 - 45.0 % 11/26/2019 10:56 AM [facility] MCV 85.1 81.0 - 97.0 fL 11/26/2019 10:56 AM [facility] MCH 28.7 28.0 - 34.0 pg 11/26/2019 10:56 AM [facility] MCHC 33.8 32.0 - 36.0 g/dL 11/26/2019 10:56 AM [facility] Platelet Count 391 150 - 400 10 3/uL 11/26/2019 10:56 AM [facility] RDW-SD 38.3 36.0 - 50.0 fL 11/26/2019 10:56 AM [facility] RDW-CV 12.4 11.2 - 14.8 % 11/26/2019 10:56 AM [facility] MPV 9.1(L) 9.3 - 12.8 fL 11/26/2019 10:56 AM [facility] nRBC Absolute 0.00 0 10 3/uL 11/26/2019 10:56 AM [facility] nRBC Auto 0.0 0 /100 WBC 11/26/2019 10:56 AM [facility] Neutrophils % 68.5 35.0 - 70.0 % 11/26/2019 10:56 AM [facility] Lymphocytes % 24.2 19.7 - 55.1 % 11/26/2019 10:56 AM [facility] Monocytes % 5.5 3.0 - 15.0 % 11/26/2019 10:56 AM [facility] Eosinophils % 0.7 0.0 - 6.0 % 11/26/2019 10:56 AM [facility] Basophil % 0.5 0.0 - 1.5 % 11/26/2019 10:56 AM [facility] Neutrophils Absolute 7.3(H) 1.6 - 7.0 10 3/uL 11/26/2019 10:56 AM [facility] Lymphocyte Absolute 2.6 0.8 - 2.9 10 3/uL 11/26/2019 10:56 AM [facility] Monocytes Absolute 0.59 0.14 - 0.66 10 3/uL 11/26/2019 10:56 AM [facility] Eosinophils Absolute 0.07 0.00 - 0.45 10 3/uL 11/26/2019 10:56 AM [facility] Basophils Absolute 0.05 0.00 - 0.06 10 3/uL 11/26/2019 10:56 AM [facility] Immature Granulocytes % 0.6 0.0 - 1.0 % 11/26/2019 10:56 AM [facility] Blood BLOOD SPECIMEN / Unknown Venipuncture / Unknown 11/26/2019 10:41 AM PADDING MACHINE OPERATOR 11/26/2019 10:46 AM [facility] Tc Padron ASSISTANT ANALYST-MANAGER INVENTORY CONTROL LAB - HEMATOLOGY ORDERABLES [facility] [address] [phone] * (ABNORMAL) COMPREHENSIVE METABOLIC PANEL (11/26/2019 10:41 AM [facility]) BUN 6(L) 7 - 26 mg/dL 11/26/2019 11:08 AM [facility] Creatinine 0.5(L) 0.6 - 1.2 mg/dL 11/26/2019 11:08 AM [facility] Sodium 137 136 - 145 mmol/L 11/26/2019 11:08 AM [facility] Potassium 4.1 3.5 - 4.5 mmol/L 11/26/2019 11:08 AM [facility] Chloride 101 98 - 107 mmol/L 11/26/2019 11:08 AM [facility] CO2 27 22 - 29 mmol/L 11/26/2019 11:08 AM [facility] Glucose 147(H) 70 - 115 mg/dL 11/26/2019 11:08 AM [facility] Calcium 9.7 8.4 - 10.2 mg/dL 11/26/2019 11:08 AM [facility] Protein Total 7.3 6.0 - 8.3 g/dL 11/26/2019 11:08 AM [facility] Albumin 3.6 3.4 - 5.0 g/dL 11/26/2019 11:08 AM [facility] Bilirubin Total 0.3 0.2 - 1.2 mg/dL 11/26/2019 11:08 AM [facility] Alkaline Phosphatase 85 40 - 150 Units/L 11/26/2019 11:08 AM [facility] ALT 19 0 - 55 Units/L 11/26/2019 11:08 AM [facility] AST 14 5 - 34 Units/L 11/26/2019 11:08 AM [facility] Anion Gap 13 8 - 18 11/26/2019 11:08 AM [facility] BUN/Creatinine Ratio 12 7 - 23 11/26/2019 11:08 AM [facility] Osmolality Calculated 284 270 - 300 mOsm/kg 11/26/2019 11:08 AM [facility] Albumin/Globulin Ratio 1.0(L) 1.1 - 2.3 11/26/2019 11:08 AM [facility] eGFR >60 >60 mL/min/1.7 3 m2 11/26/2019 11:08 AM [facility] Blood BLOOD SPECIMEN / Unknown Venipuncture / Unknown 11/26/2019 10:41 AM PADDING MACHINE OPERATOR 11/26/2019 10:46 AM PADDING MACHINE OPERATOR Tc BRIONES LAB - CHEMISTRY ORDERABLES Performing Organization Address [facility]/ZIP Co de Phone Number [address] [phone] * HCG BETA BLOOD QUANTITATIVE (11/26/2019 10:41 AM [facility]) [facility] Beta-hCG Total Quantitative <2 <5 mIU/mL 11/26/2019 12:21 PM [facility] Comment: This assay is cleared for [...] Unknown Venipuncture / Unknown 11/26/2019 10:41 AM PADDING MACHINE OPERATOR 11/26/2019 10:46 AM PADDING MACHINE OPERATOR Khang Wheeler MD LAB - CHEMISTRY SUSAN BARONE Performing Organization Address City/[facility]/ZIP Co de Phone Number [address] [phone] * MAGNESIUM BLOOD (11/26/2019 10:41 AM PADDING MACHINE OPERATOR) Magnesium 1.6 1.6 - 2.6 mg/dL 11/26/2019 11:59 AM PADDING MACHINE OPERATOR [facility] Blood BLOOD SPECIMEN / Unknown Venipuncture / Unknown 11/26/2019 10:41 AM PADDING MACHINE OPERATOR 11/26/2019 10:46 AM PADDING MACHINE OPERATOR Khang Wheeler MD LAB - CHEMISTRY SUSAN BARONE [address] [phone] * LIPASE BLOOD (11/26/2019 10:41 AM PADDING MACHINE OPERATOR) Pathologist [facility] Lipase 17 8 - 78 Units/L 11/26/2019 11:08 AM PADDING MACHINE OPERATOR [facility] Blood BLOOD SPECIMEN / Unknown Venipuncture / Unknown 11/26/2019 10:41 AM PADDING MACHINE OPERATOR 11/26/2019 10:46 AM PADDING MACHINE OPERATOR Tc RIOSMANAGER INVENTORY CONTROL LAB - CHEMISTRY ORDERABLES Performing Organization Address [facility]/ZIP Co de Phone Number [address] [phone] * TSH (11/26/2019 10:41 AM PADDING MACHINE OPERATOR) TSH 0.654 0.350 - 4.940 uIU/mL 11/26/2019 12:21 PM PADDING MACHINE OPERATOR [facility] Blood BLOOD SPECIMEN / Unknown Venipuncture / Unknown 11/26/2019 10:41 AM PADDING MACHINE OPERATOR 11/26/2019 10:46 AM PADDING MACHINE OPERATOR Khang Wheeler MD LAB - CHEMISTRY SUSAN BARONE Performing Organization Address City/[facility]/ZIP Co de Phone Number [address] [phone] * T4 FREE (11/26/2019 10:41 AM PADDING MACHINE OPERATOR) T4 Free 0.9 0.7 - 1.5 ng/dL 11/26/2019 1:39 PM [facility] Blood BLOOD SPECIMEN / Unknown Venipuncture / Unknown 11/26/2019 10:41 AM PADDING MACHINE OPERATOR 11/26/2019 10:46 AM PADDING MACHINE OPERATOR Khang Wheeler MD LAB - CHEMISTRY SUSAN Ray Organization Address City/State/ZIP Co de Phone Number [address] [phone] * (ABNORMAL) URINALYSIS W/MICROSCOPIC NO CULTURE (11/26/2019 10:40 AM PADDING MACHINE OPERATOR) Color UA Straw Straw, Yellow, Colorless 11/26/2019 10:59 AM [facility] Clarity UA Slt Cloudy Clear, Slt Cloudy 11/26/2019 10:59 AM [facility] Specific [place] UA 1.003(L) 1.005 - 1.030 11/26/2019 10:59 AM [facility] pH UA 6.0 5.0 - 8.0 pH 11/26/2019 10:59 AM [facility] Protein UA Negative Negative mg/dL 11/26/2019 10:59 AM [facility] Glucose UA Negative Negative mg/dL 11/26/2019 10:59 AM [facility] Ketone UA Negative Negative mg/dL 11/26/2019 10:59 AM [facility] Bilirubin UA Negative Negative mg/dL 11/26/2019 10:59 AM [facility] Blood UA 1+(A) Negative 11/26/2019 10:59 AM [facility] Nitrite UA Negative Negative 11/26/2019 10:59 AM [facility] Leukocyte Esterase Trace(A) Negative 11/26/2019 10:59 AM [facility] Urobilinogen UA Negative Negative mg/dL 11/26/2019 10:59 AM [facility] RBC UA 3-5 None Seen, 0-2, 3-5 /HPF 11/26/2019 10:59 AM [facility] WBC UA 0-5 None Seen, 0-5 /HPF 11/26/2019 10:59 AM [facility] Bacteria UA 1+(A) None, Trace /HPF 11/26/2019 10:59 AM PADDING MACHINE OPERATOR [facility] Squamous Epithelial Cells UA 3-5(A) None Seen, 0-2 /HPF 11/26/2019 10:59 AM PADDING MACHINE OPERATOR [facility] Urine URINE SPECIMEN OBTAINED BY CLEAN CATCH PROCEDURE / Unknown Collection / Unknown 11/26/2019 10:40 AM PADDING MACHINE OPERATOR 11/26/2019 10:46 AM PADDING MACHINE OPERATOR Narrative [facility] - 11/26/2019 10:59 AM PADDING MACHINE OPERATOR Tc Padron APRN-MANAGER INVENTORY CONTROL LAB - URINALYSIS ORDERABLES [facility] [address] [place] [address], [facility] [phone] * HCG URINE QUALITATIVE - POINT OF CARE (11/26/2019 10:35 AM PADDING MACHINE OPERATOR) HCG Qual Urine Negative Negative [facility] P OCT TESTING QC Verified Yes Yes [facility] POCT TESTING Urine URINE / Unknown 11/26/2019 1 0:35 AM PADDING MACHINE OPERATOR Tc Padron APRN-MANAGER INVENTORY CONTROL LAB - POINT OF C ARE ORDERABLES [facility] POCT TESTING [address] [place] [address] Care Teams Contact Agent Relationship Specialty Start Date End Date Raudel Stinson MD [address] [place] [id number] PCP - General Internal Medicine 11/26/19
[2025-01-16 11:47] VITALS: BP 127/77; PULSE 90; RESP 20; TEMP 36.1; O2SAT 94
[2025-01-16 12:01] LABS: EDUAAPPEAR Cloudy; EDUABILI Negative (Negative); EDUABLOOD 2+ (Negative); EDUACOLOR1 Light/Pale; EDUAGLUCOSE 2+ (Negative); EDUAKETONE Negative (Negative); EDUALEUKO 1+ (Negative); EDUANITRATE Negative (Negative); EDUAPROTEIN 1+ (Negative); EDUASPGRAVITY 1.015; EDUAUROBILI 0.2
--- NOTE | 2025-01-16 12:37 | ED.GENADULT ---
HPI - General Adult General Chief complaint: Urogenital-Female Stated complaint: uti Source: patient Mode of arrival: ambulatory Limitations: no limitations History of Present Illness HPI narrative: Pt presents for evaluation of urinary symptoms for the past few days. Symptoms include urinary urgency and dysuria at the end of urinary stream. She has had UTI's in the past and this feels similar. She denies any fever, chills, nausea, vomiting, abdominal pain, vaginal bleeding or discharge. She was placed on macrobid in the past and medication was then switched to levaquin due to results of sensitivity. She recently completed cephalexin for a mass in the breast. Related Data Home Medications ?Medication ?Instructions ?Recorded ?Confirmed ?Last Taken ?Type duloxetine 30 mg capsule,delayed 30 mg PO HS 07/31/24 12/23/24 Unknown History release Allergies Allergy/AdvReac Type Severity Reaction Status Date / Time Sulfa (Sulfonamide Allergy Intermediate Hives Verified 01/16/25 11:52 Antibiotics) trimethoprim (From ) Allergy Intermediate Hives Verified 01/16/25 11:52 codeine Allergy Unknown Unknown Verified 01/16/25 11:52 Review of Systems Review of Systems: CONSTITUTIONAL: Denies fever, chills, or sweats. EYES: Denies visual changes, redness, or discharge. ENT: Denies rhinorrhea, congestion, sore throat, or otalgia. CARDIOVASCULAR: Denies chest pain, palpitations, or edema. RESPIRATORY: Denies cough or dyspnea. GASTROINTESTINAL: Denies abdominal pain, nausea, vomiting, or diarrhea. GENITOURINARY: Reports urinary urgency and dysuria at the end of urinary stream. SKIN: Denies rash or itching. MUSCULOSKELETAL: Denies back pain, joint pain, or myalgia. NEUROLOGIC: Denies headache, numbness, dizziness, or weakness. PSYCHIATRIC: Denies anxiety or depression. [facility] Past Medical History Medical History Microalbuminuria due to type 2 diabetes mellitus microalbumin ratio 576 on 10/16/2024. BMI 29.0-29.9,adult Overweight (BMI 25.0-29.9) Fibromyalgia CK 46, aldolase 3.6, DESIREE negative, RF <10, magnesium 1.7 , ESR 2 on 10/16/2024. Chronic depression Acute bronchitis Arthralgia Chronic, continuous use of opioids Chronic anxiety BMI 31.0-31.9,adult Obesity (BMI 30.0-34.9) Contact dermatitis due to plant (~07/12/24) Breast cancer screening by mammogram Mixed hyperlipidemia Cholesterol 133, triglycerides 142, HDL 55, LDL 55 with ratio 2.4 on 10/16/2024. AP (obstructive sleep apnea) home sleep study 05/22/2024 with AP with AHI of 9.0 with oxygen saturation to 75% with need for CPAP titration. Spinal stenosis of lumbar region Situational depression Hyponatremia Elevated blood pressure reading Pelvic pain Vaginal yeast infection Asthma exacerbation Dysuria Leukocytosis Chronic respiratory failure with hypoxia and hypercapnia Abnormal lung sounds Bilateral leg paresthesia Diabetes mellitus type 2 in obese Fasting glucose 176, hemoglobin A1c 7.9, microalbumin ratio of 576 with GFR 110 on 10/16/2024. Hypertension Hyperlipemia Anxiety Asthma Chronic neck pain History of cervical fusion at 2 levels around 2017. Surgical History Surgical History History of bilateral carpal tunnel release History of cholecystectomy History of fusion of cervical spine Family History Family History Mother Alcoholism Diabetes mellitus Depression Anxiety Father Asthma Daughter Asthma Anxiety Depression Grandparent Cancer Son Anxiety Depression Sibling Anxiety Depression Other Family history of alcoholism Hypertension Social History Social History Social History: Caffeine-Tea daily Smoking packs per day: 1.5 Smoking cigarettes per day: 30.0 Years smoked: 30 Smoking pack-years: 45.00 Smoking status: Current every day smoker Tobacco type: cigarettes Additional smoking assessment comments: 1-2 packs a day Alcohol intake: current Alcohol use details: RARE USE Substance use: never Substance use type: does not use Do You Feel Safe in your Home?: Yes Lack of Transportation: No Lack of Food: Never True Current Housing: I Have Housing Concerned About Future Housing: No Difficulty Paying Gas/Electric Bills: No Difficulty Paying for Meds: No Currently Unemployed: No Education: High School Diploma/GED Difficulty w/ Childcare or Family Care: No Living arrangements: with family Gender identity (if verbalized by the patient): Male Agree to blood products: Yes Exam Narrative: GENERAL: Well-appearing, well-nourished, and in no acute distress. HEAD: Normocephalic, atraumatic. EYES: PERRLA and EOMI. ENT: Nares clear, no rhinorrhea or epistaxis. Mucous membranes moist. Oropharynx without tonsillar hypertrophy exudate or other lesions. Bilateral TMs pearly bergeron nonbulging NECK: Supple. No adenopathy or masses. No carotid bruits or JVD CHEST: Clear to auscultation. No respiratory distress. No wheezes rales or rhonchi HEART: Regular rate and rhythm. No murmur heard. Normal peripheral pulses. ABDOMEN: Soft, nontender, nondistended, normal active bowel sounds. EXTREMITIES: Normal range of motion. No edema. SKIN: Warm, dry, no rash. NEURO: No focal deficits. Alert and oriented x3. PSYCH: Normal mood and affect. Course Course Emergency Course: This is a 49 year old female who presented for evaluation of urinary symptoms. She has evidence of UTI in urine dipstick. She is allergic to sulfa. She asked that we not use cephalexin and she states macrobid was ineffective in the past. She had a favorable response to levaquin. Will dc with levaquin. Increase hydration. She declined pyridium. Follow up with primary provider. Go to the ER for worsening symptoms. Pt in agreement with plan of care. Level of Care: Express Care Visit Vital Signs Vital signs: Vital Signs Temperature 36.1 C L 01/16/25 11:47 Pulse Rate 90 01/16/25 11:47 Respiratory Rate 20 01/16/25 11:47 Blood Pressure 127/77 01/16/25 11:47 Pulse Oximetry 94 01/16/25 11:47 Oxygen Delivery Room Air 01/16/25 11:47 Temperature 36.1 C L 01/16/25 11:47 Pulse Rate 90 01/16/25 11:47 Respiratory Rate 20 01/16/25 11:47 Blood Pressure 127/77 01/16/25 11:47 Pulse Oximetry 94 01/16/25 11:47 Oxygen Delivery Room Air 01/16/25 11:47 Medical Decision Making Vital Signs Vital Signs: Vital Signs Temperature 36.1 C L 01/16/25 11:47 Pulse Rate 90 01/16/25 11:47 Respiratory Rate 20 01/16/25 11:47 Blood Pressure 127/77 01/16/25 11:47 Pulse Oximetry 94 01/16/25 11:47 Oxygen Delivery Room Air 01/16/25 11:47 Temperature 36.1 C L 01/16/25 11:47 Pulse Rate 90 01/16/25 11:47 Respiratory Rate 20 01/16/25 11:47 Blood Pressure 127/77 01/16/25 11:47 Pulse Oximetry 94 01/16/25 11:47 Oxygen Delivery Room Air 01/16/25 11:47 Lab Data Labs: Lab Results 01/16/25 Range/Units 11:56 POC Urine Color Light/pale POC Urine Clarity Cloudy POC Urine pH 5.0 POC Ur Specif Pana 1.015 POC Urine Protein 1+ (Negative) POC Ur Glucose (UA) 2+ (Negative) POC Urine Ketones Negative (Negative) POC Urine Blood 2+ (Negative) POC Urine Nitrite Negative (Negative) POC Urine Bilirubin Negative (Negative) POC Urine Urobilinogen 0.2 POC U Leukocyte Esteras 1+ (Negative) Discharge Plan Discharge Clinical Impression: UTI (urinary tract infection) Patient Disposition: Home, Self-Care Condition: Stable Instructions: Antibiotic Form, Urinary Tract Infection in Women (ED) Patient Language: Azerbaijani Prescriptions: New levofloxacin 750 mg tablet 750 mg PO DAILY 7 Days Qty: 7 0RF No Action Trulicity 3 mg/0.5 mL pen injector 3 mg subcut WEEKLY Qty: 2 11RF Rx Instructions: saturday duloxetine 30 mg capsule,delayed release(DR/EC) 30 mg PO HS metformin 500 mg tablet extended release 24 hr 1,500 mg PO HS Qty: 270 3RF dapagliflozin propanediol [Farxiga] 10 mg tablet 10 mg PO QAM Qty: 30 11RF citalopram 40 mg tablet 40 mg PO HS Qty: 30 11RF rosuvastatin 5 mg tablet 5 mg PO HS Qty: 30 5RF lisinopril 20 mg tablet 20 mg PO HS Qty: 90 3RF Breztri Aerosphere 160-9-4.8 mcg/actuation HFA aerosol inhaler See Rx Instructions .ROUTE .COMPLEX Qty: 10.7 3RF Dose Instruction: USE 2 PUFFS TWICE A DAY Rx Instructions: USE 2 PUFFS TWICE A DAY hydrocodone-acetaminophen 10-325 mg tablet 1 tablet PO Q12H PRN (Reason: pain) Qty: 60 0RF Follow-up/Referrals: Ian Fajardo MD [Primary Care Provider] - Time of Disposition: 12:37
== END 2025-01-16 12:40 | disposition home or self-care (01) ==
PROVIDERS: Emergency Provider Nurse Practitioner; PCP Family Medicine
DX: N39.0 Urinary tract infection, site not specified (principal); B96.20 Unspecified Escherichia coli [E. coli] as the cause of diseases classified elsewhere; F17.210 Nicotine dependence, cigarettes, uncomplicated; E11.9 Type 2 diabetes mellitus without complications; Z79.84 Long term (current) use of oral hypoglycemic drugs; I10 Essential (primary) hypertension; M79.7 Fibromyalgia; E66.9 Obesity, unspecified; Z68.29 Body mass index [BMI] 29.0-29.9, adult; E78.2 Mixed hyperlipidemia; J45.909 Unspecified asthma, uncomplicated; M48.061 Spinal stenosis, lumbar region without neurogenic claudication
CPT/HCPCS: 81003; 87086; 87186; 99213; G0463